=== PATIENT | male | born 1930 | race African-American/Black ===

== ENCOUNTER 2019-04-02 19:41 | Inpatient (IN) | payer MEDICARE, BC ==
[~2019-04-02] VITALS: Ht 170.2 cm; Wt 65.8 kg
[2019-04-02] MEDS ORDERED: CALCIUM 600 +1 EAC3 PO (19:48)
[2019-04-02] MEDS ORDERED: VITAMIN D250000 UNIT PO (19:48)
[2019-04-02] MEDS ORDERED: MEGACE ES625 MG/5 M PO (19:49)
[2019-04-02] MEDS ORDERED: MILK OF MAGNESI30 ML PO (19:49)
[2019-04-02] MEDS ORDERED: ANTIVERT12.5 MG PO (19:49)
[2019-04-02] MEDS ORDERED: TRAZODONE HCL150 MG (19:50)
[2019-04-02] MEDS ORDERED: THERAGRAN M [BK1 TAB PO (19:50)
--- NOTE | 2019-04-02 20:36 | NUR ---
PT TURNED ONTO R SIDE. PT REPORTS INCREASE IN COMFORT. PT RESTING ON BED. PT FAMILY AT BEDSIDE.
[2019-04-02 20:37] VITALS: BP 123/55
--- NOTE | 2019-04-02 21:20 | NUR ---
PT AND FAMILY UPDATED ON PLAN OF CARE. PT RESTING COMFORTABLY. NO S/S OF ACUTE DISTRESS NOTED.
[2019-04-02 21:30] VITALS: BP 118/55
[2019-04-02 22:45] VITALS: BP 118/61; BMI 22.7
--- NOTE | 2019-04-02 22:55 | NUR ---
RECEIVED PT FROM ER, PT IS NONVERBAL AT TIMES, UNDERSTANDS INSTRUCTIONS. PT HAS STAGE 2 ON COCCYX HAD RN REASSESS AND THEN PLACED MEPLEX OVER SORE. PT DAUGHTERS GAVE EMERGENCY CONTACT INFO THEN STATED THAT PT IS TO NOT HAVE BY ANY MEANS A TUBE PLACED. CONTINUE WITH PLAN OF CARE
--- NOTE | 2019-04-02 23:02 | NUR ---
PT IS NOT EATING OR DRINKING PER FAMILY, SWALLOW STUDY NEEDS TO BE DONE, NONE ORDERED AT TIME, WILL ORDER FLUIDS FOR PT AT TIS TIME
[2019-04-03] VITALS (7 sets, daily range): BP systolic 105–139; BP diastolic 55–76; Ht 170.2 cm; Wt 65.8 kg
--- NOTE | 2019-04-03 01:29 | NUR ---
I have reviewed this patient and I concur with the Shift Assessment completed by the Licensed Practical Nurse today this shift.
--- NOTE | 2019-04-03 03:14 | NUR ---
PT RESTING WELL, NO S/S OF DISTRESS. PT DID WAKE UP ONCE AND ASKED FOR URINAL. BED IN LOWEST POSITION, CL IN REACH CONTINUE WITH PLAN OF CARE
[2019-04-03 04:26] LABS: APPEARANCE HAZY (CLEAR); BILIRUBIN 2+ (NEGATIVE); COLOR AMBER (YELLOW); GLUCOSE NEGATIVE (NEGATIVE); KETONE SMALL mg/dL (NEGATIVE); NITRITE NEGATIVE (NEGATIVE); PROTEIN 1+ mg/dL (NEGATIVE)
[2019-04-03 04:29] LABS: AMORPHOUS SEDIMENT >1+ /lpf (NONE SEEN); BACTERIA MANY /hpf (NONE SEEN); EPITHELIAL CELLS 0-5 /hpf (0-5); GRANULAR CAST RARE /lpf (NONE SEEN); HYALINE CAST OCC /lpf (NONE SEEN); MUCUS <1+ /lpf (NONE SEEN); RED CELLS - URINE 0-5 /hpf (0-5); YEAST >1+ /hpf (NONE SEEN)
--- NOTE | 2019-04-03 04:36 | NUR ---
PT URINATED IN URINAL AND COLOR WAS DARK PADMINI WITH PINK TINGE, ORDERED UA AND CULTURE. UA HAS COME BACK WITH MANY ELEMENTS POSITIVE. MARCELINA CRUZ AM NURSE BRING TO CAM GRIER
--- NOTE | 2019-04-03 07:40 | NUR ---
PT RESTING IN BED, EYES OPEN. ALERT AND ORIENTED, SLOW TO RESPOND TO QUESTIONS BUT ANSWERS APPROPRIATELY. USES URINAL. STAGE 4 COLON/PROSTATE CANCER. STAGE 2 PRESSURE ULCER TO COCCYX, MEPILEX DRESSING C/D/I. IV TO LEFT WRIST, NS INFUSING @ 100ML/HR. PT DENIES ANYTHING FURTHER AT THIS TIME. CALL LIGHT IN REACH. WILL CONTINUE TO MONITOR.
--- NOTE | 2019-04-03 13:26 | NUR ---
PT TAKEN FOR EGD VIA BED ACCOMPANIED BY STAFF. AT BEDSIDE. PREOP MEDS GIVEN PER PHYSICIAN ORDERS.
--- NOTE | 2019-04-03 18:41 | NUR ---
PT RESTING IN BED. ALERT AND ORIENTED. NO C/O PAIN. NO S/S OF ACUTE DISTRESS NOTED. CALL LIGHT IN REACH. WILL CONTINUE TO MONITOR.
[2019-04-04] VITALS (8 sets, daily range): BP systolic 106–147; BP diastolic 56–86
[2019-04-04 06:44] LABS: CALCIUM 7.6 mg/dL (8.5-10.1); CARBON DIOXIDE 21.4 mmol/L (21.0-32.0); CREATININE - SERUM 1.9 mg/dL (0.6-1.3); POTASSIUM - SERUM 3.4 mmol/L (3.5-5.1)
[2019-04-04 06:51] LABS: BASOPHILS 0.1 % (0-2); EOSINOPHILS 0 % (0-7); HEMATOCRIT 28.7 % (42.0-54.0); HEMOGLOBIN 9.1 g/dL (13.5-17.5); IMMATURE GRANULOCYTES 0.6 % (0-5); LYMPHOCYTES 5.7 % (15-50); MCH 26.6 pg (26.0-34.0); MCHC 31.7 g/dL (31.0-37.0); MCV 83.9 fL (80.0-100.0); MEAN PLATELET VOLUME 11.8 fL (7.4-10.4); MONOCYTES 4.5 % (2-11); NEUTROPHILS 89.1 % (40-80); PLATELET COUNT 344 10x3/uL (130-400); RBC 3.42 10x6/uL (4.20-6.10); RDW 20.2 % (11.5-14.5); WBC 16.4 10x3/uL (4.8-10.8)
--- NOTE | 2019-04-04 13:40 | MORECARE ---
CASE MANAGEMENT DISCHARGE SUMMARY PATIENT: CK MCCARTHY UNIT: [id number] ADM DATE: 04/02/19 AGE: 88 : [birth year] SEX: M ROOM/BED: D.2227 AUTHOR: MARTINA RIZO PHYSICIAN: REFERRING PHYSICIAN: THIAGO RAGLAND MD DATE OF SERVICE: 04/04/19 Discharge Plan Patient Name: CK MCCARTHY [facility] [facility] 1930 Planned Disposition: SNF w Planned Readmission Anticipated Discharge Date: Discharge Date: Expected LOS: Initial Reviewer: [email or web address] Initial Review Date: 04/04/2019 Generated: 04/04/19 2:40 pm DCPIA - Discharge Planning Initial Assessment Updated by [id number]: Chelsea Girard on 04/04/19 1:39 pm * Is the patient Alert and Oriented? No * How many steps to enter\exit or inside your home? 0/1 * PCP Dr. Webb in [place] * Pharmacy [facility] in [place] * Preadmission Environment Nursing Home Facility * Facility Name [facility] * ADLs Total Dependent * Equipment Cane Walker * List name and contact numbers for known caregivers / representatives who currently or will assist patient after discharge: Grace Mccarthy - spouse - H [phone] * Verbal permission to speak to the caregivers and representatives has been obtained from the patient. Yes * Community resources currently utilized None * Additional services required to return to the preadmission environment? No * Can the patient safely return to the preadmission environment? Yes * Has this patient been hospitalized within the prior 30 days at any hospital? No External Providers External Provider: [facility] Next Contact Date: Service Request Date: Service Type: Resolution: Reviewer: Comments: Patient Name: CK MCCARTHY Page [id number] at 1340 All edits/amendments must be made on the electronic document DICTATION DATE: 04/04/19 1340 GOLF CADDY: ROSALIND 04/04/19 1340 RPT#: [id number] DC DATE: STATUS: ADM IN [facility] [address] [place] [address] END OF REPORT
--- NOTE | 2019-04-04 13:50 | MORECARE ---
CASE MANAGEMENT DISCHARGE SUMMARY PATIENT: CK MCCARTHY UNIT: [id number] ADM DATE: 04/02/19 AGE: 88 : [birth year] SEX: M ROOM/BED: D.2227 AUTHOR: SALLIEDOC PHYSICIAN: REFERRING PHYSICIAN: THIAGO RAGLAND MD DATE OF SERVICE: 04/04/19 Discharge Plan Patient Name: CK MCCARTHY Facility: [facility]:[place] : 1930 Planned Disposition: SNF w Planned Readmission Anticipated Discharge Date: Discharge Date: Expected LOS: Initial Reviewer: [email or web address] Initial Review Date: 04/04/2019 Generated: 04/04/19 2:49 pm Comments DCP- Discharge Planning Updated by [email or web address]: Chelsea Girard on 04/04/19 12:[address] Patient Name: CK MCCARTHY Admission Status: ER Accout number: [id number] Admission Date: 04-02-2019 : 1930 Admission Diagnosis: Attending: THIAGO RAGLAND Current LOS: 2 Anticipated DC Date: Planned Disposition: SNF w Planned Readmission Primary Insurance: MEDICARE A & B Discharge Planning Comments: CM went to patient's room to discuss discharging planning, he is asleep and not awakened. I called his , Grace, to discuss discharge planning. She states he has been in the skilled therapy at [facility] for about a week and a half. She states the discharge plan is to return there. States terminal clerk plan is to return home with her. States he has a cane and a walker at home. I called meghan Araujo for [facility], and clinical faxed. CM will continue to follow and assist with discharge planning/needs. Supervisor Bridges And Buildings: Chelsea Girard DCPIA - Discharge Planning Initial Assessment Updated by [email or web address]: Chelsea Girard on 04/04/19 1:39 pm * Is the patient Alert and Oriented? No * How many steps to enter\exit or inside your home? 0/1 * PCP Dr. Webb in [place] * Pharmacy [facility] in [place] * Preadmission Environment Group Home Facility * Facility Name [facility] * ADLs Total Dependent * Equipment Cane Walker * List name and contact numbers for known caregivers / representatives who currently or will assist patient after discharge: Grace Mccarthy - spouse - H [phone] C [phone] * Verbal permission to speak to the caregivers and representatives has been obtained from the patient. Yes * Community resources currently utilized None * Additional services required to return to the preadmission environment? No * Can the patient safely return to the preadmission environment? Yes * Has this patient been hospitalized within the prior 30 days at any hospital? No Coverage Notice Reviewer: [email or web address] Will Girard Notice Issued Date-Time: 04/04/2019 13:44 Notice Type: Patient Choice Letter Notice Delivered To: Family Member Relationship to Patient: Spouse Thread Dresser Name: Grace Winter Delivery Method: PHONE - Phone Holly Days: Prior Verbal Notification: Recipient Understood Notice: Yes Recipient Signature: Yes Med Rec Note Co-signed by Attending: Coverage Notice Comment: CHRISTA for [facility] Last DP export: 04/04/19 12:40 p Patient Name: CK MCCARTHY Page [id number] at 1350 All edits/amendments must be made on the electronic document DICTATION DATE: 04/04/19 1349 CARPENTER SUPERVISOR WOODEN SHIP: ROSALIND 04/04/19 1349 RPT#: [id number] DC DATE: STATUS: ADM IN [facility] [address] [place] [address] END OF REPORT
--- NOTE | 2019-04-04 19:16 | NUR ---
I have reviewed this patient and I concur with the Shift Assessment completed by the Licensed Practical Nurse today this shift.
[2019-04-05] VITALS (7 sets, daily range): BP systolic 124–157; BP diastolic 50–82
--- NOTE | 2019-04-05 04:18 | NUR ---
RESTING QUITELY IN BED NO APPARENT DISTRESS, CALL LIGHT IN REACH
[2019-04-05 04:43] LABS: BASOPHILS 0.1 % (0-2); EOSINOPHILS 0.1 % (0-7); HEMATOCRIT 33.7 % (42.0-54.0); HEMOGLOBIN 10.8 g/dL (13.5-17.5); IMMATURE GRANULOCYTES 0.7 % (0-5); LYMPHOCYTES 7.4 % (15-50); MCH 27.1 pg (26.0-34.0); MCV 84.7 fL (80.0-100.0); MONOCYTES 3.7 % (2-11); RBC 3.98 10x6/uL (4.20-6.10); RDW 21.3 % (11.5-14.5); WBC 15.4 10x3/uL (4.8-10.8)
[2019-04-05 04:44] LABS: PLATELET COUNT 264 10x3/uL (130-400)
[2019-04-05 04:47] LABS: ANION GAP 17.3 mmol/L (8-16); CALCIUM 7.8 mg/dL (8.5-10.1); CARBON DIOXIDE 19.7 mmol/L (21.0-32.0)
[2019-04-05 04:50] LABS: CREATININE - SERUM 1.4 mg/dL (0.6-1.3)
--- NOTE | 2019-04-05 12:27 | NUR ---
Nutrition Follow Up: Pt was asleep at the time of RD visit. Interview deferred at this time. Diet: Regular Puree with Colt Thick Liquids; Ensure TID PO Intake: 25% meal avg BM: 04/03/19 Labs reviewed Meds noted including Carafate, Reglan Rec continue regular diet with HALL SUPERVISOR recs for consistencies. Rec continue Ensure TID. Rec consider an appetite stimulant. RD following.
--- NOTE | 2019-04-05 14:48 | NUR ---
PT RESTING IN BED. NO SIGNS OF DISTRESS. IV TO LEFT WRIST PATENT NO REDNESS OR TENDERNESS. HAS STAGE TWO TO COCCYX DRESSING INTACT. DENIES ANY FUTHER NEED AT THIS TIME. CALL LIGHT IN REACH. BED LOW POSITION. NO FAMILY AT BEDSIDE AT THIS TIME.
--- NOTE | 2019-04-05 18:04 | NUR ---
I have reviewed this patient and I concur with the Shift Assessment completed by the Licensed Practical Nurse today this shift.
--- NOTE | 2019-04-05 19:00 | NUR ---
REPORT RECEIVED AND CARE OF PT ASSUMED. PT LYING ON RIGHT SIDE PROPPED WITH WEDGE. IV IN LEFT WRIST PATENT WITH NS INFUSING AT 100 ML/ HR. WILL MONITOR FOR NEEDS.
--- NOTE | 2019-04-05 21:56 | NUR ---
HS MEDICATIONS GIVEN. GAVE PILLS WHOLE WITH APPLESAUCE. WILL CONTINUE TO MONITOR FOR NEEDS.
--- NOTE | 2019-04-05 22:30 | NUR ---
BRUSHED AND CLEANED DENTURES, AND PLACED WITH TABLET AND WATER TO SOAK.
--- NOTE | 2019-04-05 23:20 | NUR ---
PT CLEANED AND ALL LINENS CHANGED DUE TO INCONTINENCE OF BOWEL AND BLADDER. POSITIONED ON BACK PER TURN SCHEDULE. HEELS BRIDGED. WILL CONTINUE TO MONITOR FOR NEEDS.
--- NOTE | 2019-04-06 01:30 | NUR ---
CHANGED ALL IV TUBING.
[2019-04-06 04:58] VITALS: BP 151/70
[2019-04-06 05:11] LABS: HEMATOCRIT 31.3 % (42.0-54.0); MCH 26.5 pg (26.0-34.0); MCHC 31.9 g/dL (31.0-37.0); MCV 82.8 fL (80.0-100.0); MEAN PLATELET VOLUME 11.4 fL (7.4-10.4); PLATELET COUNT 275 10x3/uL (130-400); RBC 3.78 10x6/uL (4.20-6.10); RDW 21.1 % (11.5-14.5); WBC 22.1 10x3/uL (4.8-10.8)
[2019-04-06 05:17] LABS: ANION GAP 14.9 mmol/L (8-16); CALCIUM 7.6 mg/dL (8.5-10.1); CARBON DIOXIDE 21.7 mmol/L (21.0-32.0); CREATININE - SERUM 1.5 mg/dL (0.6-1.3); POTASSIUM - SERUM 3.6 mmol/L (3.5-5.1)
[2019-04-06 05:37] LABS: LYMPHOCYTES 5 % (15-50); MONOCYTES 4 % (2-11); NEUTROPHILS 91 % (40-80); PLATELET ESTIMATE NORMAL
--- NOTE | 2019-04-06 05:39 | NUR ---
PAGED ONCALL PHYSICIAN WITH CRITICALLY HIGH CHLORIDE LEVEL. RECEIVED ORDER TO DISCONTINUE NS AT 100 ML/HR AND START D5W @ 75 ML/HR.
--- NOTE | 2019-04-06 06:03 | NUR ---
PT BATHED AND ALL LINENS AND GOWN CHANGED. NEW SOCKS PUT ON BLE...CUT THE TOP DUE TO SWOLLEN FEET. SCD'S RE-PLACED BLE. RE-PLACED DRESSING ON COCCYX...PT HAS CAYDEN SIZE SKIN BREAKDOWN. APPLIED MEPILEX FOAM DRESSING. PT TURNED ONTO LEFT SIDE PER TURN SCHEDULE, PROPPED WITH WEDGE. WILL CONTINUE TO MONITOR FOR NEEDS.
[2019-04-06 08:45] VITALS: BP 147/69
--- NOTE | 2019-04-06 12:36 | NUR ---
PT RESTING IN BED. NO SIGNS OF DISTRESS. IV TO RIGHT WRIST PATENT NO REDNESS OR TENDERNESS. HAS STAGE TWO TO COCCYX. DRESSING CLEAN AND INTACT. DENIES ANY FUTHER NEED AT THIS TIME. CALL LIGHT IN REACH. BED LOW POSITION. FAMILY AT BEDSIDE AT THIS TIME.
[2019-04-06 14:37] VITALS: BP 149/68
[2019-04-06 18:03] VITALS: BP 137/60
--- NOTE | 2019-04-06 19:00 | NUR ---
REPORT RECEIVED AND CARE OF PT ASSUMED. PT LYING IN SEMI SCHMITZ'S POSITION VISITING WITH SPOUSE AND OTHER FAMILY MEMBERS. IV IN LEFT WRIST PATENT WITH D5W INFUSING AT 75 ML / HR. SCD'S IN PLACE ON BLE.
--- NOTE | 2019-04-06 19:05 | NUR ---
ALL LINENS AND GOWN CHANGED DUE TO INCONTINENCE. POSITIONED ONTO RIGHT SIDE PER TURN SCHEDULE.
--- NOTE | 2019-04-06 20:30 | NUR ---
PT TURNED TO SUPINE POSITION PER TURN SCHEDULE. HEELS BRIDGED AND SCD'S IN PLACE.
[2019-04-06 21:22] VITALS: BP 127/59
--- NOTE | 2019-04-06 22:01 | NUR ---
HS MEDICATIONS GIVEN. BEDPADS CHANGED DUE TO INCONTINENCE AND PT TURNED TO LEFT SIDE PER TURN SCHEDULE.
--- NOTE | 2019-04-06 22:05 | NUR ---
CHANGED DRESSING ON COCCYX. CLEANSED AREA WITH WOUND PRINT PRODUCER; DRIED CAREFULLY; APPLIED SMALL AMOUNT OF ERIN'S PASTE, AND COVERED AREA WITH MEPILEX HEART. DATED AND INITIALED. WILL CONTINUE TO MONITOR FOR NEEDS.
[2019-04-07 01:22] VITALS: BP 134/62
--- NOTE | 2019-04-07 02:20 | NUR ---
BEDPADS CHANGED DUE TO INCONTINENCE OF BOWEL AND BLADDER. POSITIONED ONTO RIGHT SIDE PROPPED WITH PILLOW PER TURN SCHEDULE.
[2019-04-07 04:42] LABS: BASOPHILS 0 % (0-2); EOSINOPHILS 0.1 % (0-7); HEMATOCRIT 29.6 % (42.0-54.0); HEMOGLOBIN 9.5 g/dL (13.5-17.5); IMMATURE GRANULOCYTES 0.6 % (0-5); LYMPHOCYTES 6.2 % (15-50); MCH 26.8 pg (26.0-34.0); MCHC 32.1 g/dL (31.0-37.0); MCV 83.6 fL (80.0-100.0); MEAN PLATELET VOLUME 10.9 fL (7.4-10.4); MONOCYTES 2.9 % (2-11); NEUTROPHILS 90.2 % (40-80); PLATELET COUNT 235 10x3/uL (130-400); RBC 3.54 10x6/uL (4.20-6.10); RDW 21.1 % (11.5-14.5)
[2019-04-07 04:44] LABS: WBC 15.6 10x3/uL (4.8-10.8)
[2019-04-07 04:55] LABS: ALBUMIN 1.4 g/dL (3.4-5.0); ANION GAP 15.1 mmol/L (8-16); BILIRUBIN - TOTAL 2.09 mg/dL (0.2-1.3); CALCIUM 7.3 mg/dL (8.5-10.1); CARBON DIOXIDE 19.9 mmol/L (21.0-32.0); CREATININE - SERUM 1.4 mg/dL (0.6-1.3); PROTEIN - SERUM 5.5 g/dL (6.4-8.2)
--- NOTE | 2019-04-07 05:05 | NUR ---
PT ABLE TO USE URINAL WITH MINIMAL ASSISTANCE. WILL CONTINUE TO MONITOR FOR NEEDS.
[2019-04-07 05:14] VITALS: BP 133/55
--- NOTE | 2019-04-07 06:35 | NUR ---
ASSISTED PT IN PUTTING IN HIS DENTURES. EARLY AM MEDS GIVEN WITH THICKENED WATER.
--- NOTE | 2019-04-07 06:39 | NUR ---
FAMILY MEMBERS ARE REQUESTING PT HAVE AN AIR MATTRESS OVERLAY DUE TO COCCYX BREAKDOWN AND SILVADINE OINTMENT FOR AREA. CONSULT PLACED FOR WOUND CARE CONSULT.
[2019-04-07 08:47] VITALS: BP 141/66
[2019-04-07 12:41] VITALS: BP 122/48
[2019-04-07 18:07] VITALS: BP 155/70
--- NOTE | 2019-04-07 18:55 | NUR ---
I have reviewed this patient and I concur with the Shift Assessment completed by the Licensed Practical Nurse today this shift.
--- NOTE | 2019-04-07 19:00 | NUR ---
REPORT RECEIVED AND CARE OF PT ASSUMED. PT LYING ON 1ST STEP AIR MATTRESS OVERLAY VISITING WITH FAMILY MEMBERS. IV IN LEFT WRIST PATENT WITH D5W INFUSING AT 75 ML / HR. WILL MONITOR FOR NEEDS.
[2019-04-07 20:00] VITALS: BP 138/69
--- NOTE | 2019-04-07 22:29 | NUR ---
HS MEDICATIONS GIVEN. WILL CONTINUE TO MONITOR FOR NEEDS.
[2019-04-08] VITALS: BP 129/69
--- NOTE | 2019-04-08 00:30 | NUR ---
BEDPADS CHANGED AND PT CLEANED DUE TO INCONTINENCE. CLEANSED DECUBITIS ULCER ON COCCYX WITH WOUND ROAD MENDER AND REPLACED MEPILEX HEART DRESSING.
[2019-04-08 04:00] VITALS: BP 151/62
--- NOTE | 2019-04-08 05:01 | NUR ---
PT BATHED AND ALL LINENS CHANGED. HE WANTED TO WEAR HIS OWN NOE SHIRT INSTEAD OF YELLOW GOWN THIS MORNING. SCD'S AND SOCKS REMOVED AND FEET / LEGS CLEANSED. PLACED NEW SOCKS ON BLE. SCD'S PLACED ON LOWER LEGS AND TURNED ON. HEELS BRIDGED ON PILLOW. PT IN SUPINE POSITION AT THIS TIME PER TURN SCHEDULE.
[2019-04-08 05:13] LABS: BASOPHILS 0 % (0-2); EOSINOPHILS 0 % (0-7); HEMATOCRIT 30.8 % (42.0-54.0); HEMOGLOBIN 9.9 g/dL (13.5-17.5); IMMATURE GRANULOCYTES 0.5 % (0-5); LYMPHOCYTES 5.3 % (15-50); MCH 26.7 pg (26.0-34.0); MCHC 32.1 g/dL (31.0-37.0); MEAN PLATELET VOLUME 11.3 fL (7.4-10.4); MONOCYTES 2.8 % (2-11); NEUTROPHILS 91.4 % (40-80); PLATELET COUNT 197 10x3/uL (130-400); RBC 3.71 10x6/uL (4.20-6.10); RDW 21.6 % (11.5-14.5); WBC 16.4 10x3/uL (4.8-10.8)
[2019-04-08 05:41] LABS: ALBUMIN 1.4 g/dL (3.4-5.0); ANION GAP 16.6 mmol/L (8-16); BILIRUBIN - TOTAL 2.74 mg/dL (0.2-1.3); CALCIUM 7.5 mg/dL (8.5-10.1); CARBON DIOXIDE 18.9 mmol/L (21.0-32.0); CREATININE - SERUM 1.2 mg/dL (0.6-1.3); POTASSIUM - SERUM 3.5 mmol/L (3.5-5.1); PROTEIN - SERUM 5.6 g/dL (6.4-8.2)
[2019-04-08 08:49] VITALS: BP 138/63
[2019-04-08 12:39] VITALS: BP 123/61
[2019-04-08 17:55] VITALS: BP 121/52
--- NOTE | 2019-04-08 19:00 | NUR ---
REPORT RECEIVED AND CARE OF PT ASSUMED. PT LYING IN SUPINE POSITION ON 1ST STEP AIR MATTRESS OVERLAY. FAMILY MEMBERS ARE AT BEDSIDE. IV IN LEFT WRIST PATENT WITH D5W INFUSING AT 75 ML / HR. SCD'S IN PLACE ON BLE. WILL MONITOR FOR NEEDS.
[2019-04-08 20:00] VITALS: BP 132/66
--- NOTE | 2019-04-08 21:15 | NUR ---
PT TURNED TO SUPINE POSITION PER TURN SCHEDULE.
--- NOTE | 2019-04-08 23:30 | NUR ---
BED PAD CHANGED DUE TO INCONTINENCE. CLEANSED WOUND ON COCCYX WITH WOUND ACCOUNTING OFFICE MANAGER AND RE-PLACED MEPILEX HEART DRESSING. PT TURNED TO LEFT SIDE PER TURN SCHEDULE.
[2019-04-09] VITALS: BP 122/61
[2019-04-09 04:00] VITALS: BP 127/66
[2019-04-09 04:22] LABS: BASOPHILS 0.1 % (0-2); EOSINOPHILS 0 % (0-7); HEMATOCRIT 32.7 % (42.0-54.0); HEMOGLOBIN 10.8 g/dL (13.5-17.5); IMMATURE GRANULOCYTES 0.4 % (0-5); LYMPHOCYTES 6.8 % (15-50); MCH 26.9 pg (26.0-34.0); MCV 81.3 fL (80.0-100.0); MEAN PLATELET VOLUME 11.4 fL (7.4-10.4); MONOCYTES 2.7 % (2-11); PLATELET COUNT 196 10x3/uL (130-400); RBC 4.02 10x6/uL (4.20-6.10); RDW 21.5 % (11.5-14.5); WBC 19.9 10x3/uL (4.8-10.8)
[2019-04-09 04:23] LABS: ANION GAP 16.9 mmol/L (8-16); CALCIUM 7.6 mg/dL (8.5-10.1); CREATININE - SERUM 1.2 mg/dL (0.6-1.3); POTASSIUM - SERUM 3.9 mmol/L (3.5-5.1)
--- NOTE | 2019-04-09 05:59 | NUR ---
IV LEAKING. UNABLE TO SITE PERIPHERAL IN SEVERAL ATTEMPTS. ACCESSED INFUSAPORT USING 20 GUAGE 0.75 IN TRAORE NEEDLE, USING STERILE TECHNIQUE. ALL IV TUBINGS CHANGED. FLUSHES AND DRAWS WELL. IV FLUIDS RE-STARTED.
[2019-04-09 08:55] VITALS: BP 128/63
--- NOTE | 2019-04-09 12:07 | MORECARE ---
CASE MANAGEMENT DISCHARGE SUMMARY PATIENT: CK MCCARTHY UNIT: [id number] ADM DATE: 04/02/19 AGE: 88 : [birth year] SEX: M ROOM/BED: D.2227 AUTHOR: SALLIE,DOC PHYSICIAN: REFERRING PHYSICIAN: ELISA LU MD DATE OF SERVICE: 04/09/19 Discharge Plan Patient Name: CK MCCARTHY Facility: [facility]:[place] : 1930 Planned Disposition: SNF w Planned Readmission Anticipated Discharge Date: Discharge Date: Expected LOS: Initial Reviewer: [id number] Initial Review Date: 04/04/2019 Generated: 04/09/19 1:07 pm Comments DCP- Discharge Planning Updated by [id number]: Chelsea Girard on 04/04/19 12:[address] Patient Name: CK MCCARTHY Admission Status: ER Accout number: [id number] Admission Date: 04-02-2019 : 1930 Admission Diagnosis: Attending: THIAGO RAGLAND Current LOS: 2 Anticipated DC Date: Planned Disposition: SNF w Planned Readmission Primary Insurance: MEDICARE A & B Discharge Planning Comments: CM went to patient's room to discuss discharging planning, he is asleep and not awakened. I called his , Grace, to discuss discharge planning. She states he has been in the skilled therapy at [facility] for about a week and a half. She states the discharge plan is to return there. States rn long term care plan is to return home with her. States he has a cane and a walker at home. I called meghan Araujo for [facility], and clinical faxed. CM will continue to follow and assist with discharge planning/needs. Entomology Professor: Chelsea Girard DCPIA - Discharge Planning Initial Assessment Updated by [id number]: Chelsea Girard on 04/04/19 1:39 pm * Is the patient Alert and Oriented? No * How many steps to enter\exit or inside your home? 0/1 * PCP Dr. Webb in [place] * Pharmacy [facility] in [place] * Preadmission Environment Retirement Facility * Facility Name [facility] * ADLs Total Dependent * Equipment Cane Walker * List name and contact numbers for known caregivers / representatives who currently or will assist patient after discharge: Grace Mccarthy - spouse - H [phone] C [phone] * Verbal permission to speak to the caregivers and representatives has been obtained from the patient. Yes * Community resources currently utilized None * Additional services required to return to the preadmission environment? No * Can the patient safely return to the preadmission environment? Yes * Has this patient been hospitalized within the prior 30 days at any hospital? No External Providers External Provider: [facility] Next Contact Date: Service Request Date: Service Type: Resolution: Reviewer: Comments: Coverage Notice Reviewer: [id number] Will Girard Notice Issued Date-Time: 04/04/2019 13:44 Notice Type: Patient Choice Letter Notice Delivered To: Family Member Relationship to Patient: Spouse Chief Medical Director Name: Grace Winter Delivery Method: PHONE - Phone Holly Days: Prior Verbal Notification: Recipient Understood Notice: Yes Recipient Signature: Yes Med Rec Note Co-signed by Attending: Coverage Notice Comment: CHRISTA for Teresa De Leon Last DP export: 04/04/19 12:50 p Patient Name: CK MCCARTHY Page [phone] at 1207 All edits/amendments must be made on the electronic document DICTATION DATE: 04/09/196 BLUNGER MACHINE OPERATOR: ROSALIND 04/09/19 1206 RPT#: [id number] DC DATE: STATUS: ADM IN [facility] [address] [place] [address] END OF REPORT
--- NOTE | 2019-04-09 12:16 | MORECARE ---
CASE MANAGEMENT DISCHARGE SUMMARY PATIENT: CK MCCARTHY UNIT: [id number] ADM DATE: 04/02/19 AGE: 88 : [birth year] SEX: M ROOM/BED: D.2227 AUTHOR: SALLIEDOC PHYSICIAN: REFERRING PHYSICIAN: ELISA LU MD DATE OF SERVICE: 04/09/19 Discharge Plan Patient Name: CK MCCARTHY Facility: [facility]:[place] : 1930 Planned Disposition: SNF w Planned Readmission Anticipated Discharge Date: Discharge Date: Expected LOS: Initial Reviewer: [email or web address] Initial Review Date: 04/04/2019 Generated: 04/09/19 1:16 pm Comments DCP- Discharge Planning Updated by [email or web address]: Jaleesa Daniels on 04/09/19 11:[address] Patient Name: CK MCCARTHY Admission Status: ER Accout number: [id number] Admission Date: 04-02-2019 : 1930 Admission Diagnosis:DYSPHAGIA, UNSPECIFIED Attending: ELISA LU Current LOS: 7 Anticipated DC Date: Planned Disposition: SNF w Planned Readmission Primary Insurance: MEDICARE A & B Discharge Planning Comments: CM SPOKE WITH PATIENT FAMILY BY PHONE AND THEY ARE INTERESTED IN HOSPICE. FAMILY STATES WANTS [facility] IN [place]. I CONTACTED CURT[facility] AT HOSPICE AT [phone] AND FAXED HER DOCUMENTS TO [phone]. WAITING FOR CALL BACK. CM WILL FOLLOW AND ASSIST NEEDED. Film Flat Inspector: Jaleesa Daniels DCP- Discharge Planning Updated by [id number]: Chelsea Girard on 04/04/19 12:[address] Patient Name: CK MCCARTHY Admission Status: ER Accout number: [id number] Admission Date: 04-02-2019 : 1930 Admission Diagnosis: Attending: THIAGO RAGLAND Current LOS: 2 Anticipated DC Date: Planned Disposition: SNF w Planned Readmission Primary Insurance: MEDICARE A & B Discharge Planning Comments: CM went to patient's room to discuss discharging planning, he is asleep and not awakened. I called his , Grace, to discuss discharge planning. She states he has been in the skilled therapy at [facility] for about a week and a half. She states the discharge plan is to return there. States penitentiary plan is to return home with her. States he has a cane and a walker at home. I called meghan Araujo for [facility], and clinical faxed. CM will continue to follow and assist with discharge planning/needs. Film Flat Inspector: Chelseascot Girard DCPIA - Discharge Planning Initial Assessment Updated by [id number]: Chelsea Girard on 04/04/19 1:39 pm * Is the patient Alert and Oriented? No * How many steps to enter\exit or inside your home? 0/1 * PCP Dr. Webb in [place] * Pharmacy [facility] in [place] * Preadmission Environment [facility] Facility * Facility Name [facility] * ADLs Total Dependent * Equipment Cane Walker * List name and contact numbers for known caregivers / representatives who currently or will assist patient after discharge: Grace Mccarthy - spouse - H [phone] C [phone] * Verbal permission to speak to the caregivers and representatives has been obtained from the patient. Yes * Community resources currently utilized None * Additional services required to return to the preadmission environment? No * Can the patient safely return to the preadmission environment? Yes * Has this patient been hospitalized within the prior 30 days at any hospital? No Coverage Notice Reviewer: [id number] - Chelsea Girard Notice Issued Date-Time: 04/04/2019 13:44 Notice Type: Patient Choice Letter Notice Delivered To: Family Member Relationship to Patient: Spouse Health/Safety Job Titles Name: Grace Winter Delivery Method: PHONE - Phone Holly Days: Prior Verbal Notification: Recipient Understood Notice: Yes Recipient Signature: Yes Med Rec Note Co-signed by Attending: Coverage Notice Comment: CHRISTA for [facility] [employer] Last DP export: 04/09/19 11:07 a Patient Name: CK MCCARTHY Page [phone] at 1216 All edits/amendments must be made on the electronic document DICTATION DATE: 04/09/19 1216 PATIENT CARE COORDINATOR: ROSALIND 04/09/19 1216 RPT#: [id number] [place] DATE: STATUS: ADM IN [facility] [address] [place] [address] END OF REPORT
[2019-04-09 12:34] VITALS: BP 124/62
--- NOTE | 2019-04-09 14:18 | MORECARE ---
CASE MANAGEMENT DISCHARGE SUMMARY PATIENT: CK MCCARTHY UNIT: [id number] ADM DATE: 04/02/19 AGE: 88 : [birth year] SEX: M ROOM/BED: D.2227 AUTHOR: SALLIE,DOC PHYSICIAN: REFERRING PHYSICIAN: ELISA LU MD DATE OF SERVICE: 04/09/19 Discharge Plan Patient Name: CK MCCARTHY Facility: [facility]:[place] : 1930 Planned Disposition: SNF w Planned Readmission Anticipated Discharge Date: Discharge Date: Expected LOS: Initial Reviewer: [id number] Initial Review Date: 04/04/2019 Generated: 04/09/19 3:18 pm Comments DCP- Discharge Planning Updated by [id number]: Jaleesa Daniels on 04/09/19 1:[address] Patient Name: CK MCCARTHY Admission Status: ER Accout number: [id number] Admission Date: 04-02-2019 : 1930 Admission Diagnosis:DYSPHAGIA, UNSPECIFIED Attending: ELISA LU Current LOS: 7 Anticipated DC Date: Planned Disposition: SNF w Planned Readmission Primary Insurance: MEDICARE A & B Discharge Planning Comments: CM SPOKE WITH CURTIS AT [facility] IN [place] AN D THEY CAN ADMIT PATIENT TOMORROW AFTER DC TO HOME. [facility] NUMBER IS [phone]. SHAYAN AT DR. LU OFFICE CONTACTED AND LEFT [facility] [place] REGARDING IF ANTIBIOTICS ARE TO BE CONTINUED OR NOT AND PATIENT ACCEPTED WITH HOSPICE. CM TO FOLLOW AND ASSIST. Price Clerk: Jaleesa Daniels DCP- Discharge Planning Updated by [email or web address]: Jaleesa Daniels on 04/09/19 11:[address] Patient Name: CK MCCARTHY Admission Status: ER Accout number: [id number] Admission Date: 04-02-2019 : 1930 Admission Diagnosis:DYSPHAGIA, UNSPECIFIED Attending: ELISA LU Current LOS: 7 Anticipated DC Date: Planned Disposition: SNF w Planned Readmission Primary Insurance: MEDICARE A & B Discharge Planning Comments: CM SPOKE WITH PATIENT FAMILY BY PHONE AND THEY ARE INTERESTED IN HOSPICE. FAMILY STATES WANTS [facility] IN [place]. I CONTACTED CURTIS AT HOSPICE AT [phone] AND FAXED HER DOCUMENTS TO [phone]. WAITING FOR CALL BACK. CM WILL FOLLOW AND ASSIST NEEDED. Price Clerk: Jaleesa Daniels DCP- Discharge Planning Updated by [id number]: Chelsea Girard on 04/04/19 12:[address] Patient Name: CK MCCARTHY Admission Status: ER Accout number: [id number] Admission Date: 04-02-2019 : 1930 Admission Diagnosis: Attending: THIAGO RAGLAND Current LOS: 2 Anticipated DC Date: Planned Disposition: SNF w Planned Readmission Primary Insurance: MEDICARE A & B Discharge Planning Comments: CM went to patient's room to discuss discharging planning, he is asleep and not awakened. I called his , Grace, to discuss discharge planning. She states he has been in the skilled therapy at [facility] for about a week and a half. She states the discharge plan is to return there. States senior care plan is to return home with her. States he has a cane and a walker at home. I called meghan Araujo for [facility], and clinical faxed. CM will continue to follow and assist with discharge planning/needs. Price Clerk: Chelsea Girard DCPIA - Discharge Planning Initial Assessment Updated by [id number]: Chelsea Girard on 04/04/19 1:39 pm * Is the patient Alert and Oriented? No * How many steps to enter\exit or inside your home? 0/1 * PCP Dr. Webb in [place] * Pharmacy [facility] in [place] * Preadmission Environment Shelter Facility * Facility Name [facility] * ADLs Total Dependent * Equipment Cane Walker * List name and contact numbers for known caregivers / representatives who currently or will assist patient after discharge: Grace Mccarthy - spouse - H [phone] C [phone] * Verbal permission to speak to the caregivers and representatives has been obtained from the patient. Yes * Community resources currently utilized None * Additional services required to return to the preadmission environment? No * Can the patient safely return to the preadmission environment? Yes * Has this patient been hospitalized within the prior 30 days at any hospital? No Coverage Notice Reviewer: [id number] - Cheslea Orrell Notice Issued Date-Time: 04/04/2019 13:44 Notice Type: Patient Choice Letter Notice Delivered To: Family Member Relationship to Patient: Spouse Barge Captain Name: Grace Winter Delivery Method: PHONE - Phone Holly Days: Prior Verbal Notification: Recipient Understood Notice: Yes Recipient Signature: Yes Med Rec Note Co-signed by Attending: Coverage Notice Comment: CHRISTA for [facility] Last DP export: 04/09/19 11:16 a Patient Name: CK MCCARTHY Page 35179 at 1418 All edits/amendments must be made on the electronic document DICTATION DATE: 04/09/19 1418 OIL DISTRIBUTOR TENDER: ROSALIND 04/09/19 1418 RPT#: [id number] DC DATE: STATUS: ADM IN [facility] [address] [place] [address] END OF REPORT
--- NOTE | 2019-04-09 15:37 | MORECARE ---
CASE MANAGEMENT DISCHARGE SUMMARY PATIENT: CK MCCARTHY UNIT: [id number] ADM DATE: 04/02/19 AGE: 88 : [birth year] SEX: M ROOM/BED: D.2227 AUTHOR: SALLIE,DOC PHYSICIAN: REFERRING PHYSICIAN: ELISA LU MD DATE OF SERVICE: 04/09/19 Discharge Plan Patient Name: CK MCCARTHY Facility: [facility]:[place] : 1930 Planned Disposition: SNF w Planned Readmission Anticipated Discharge Date: Discharge Date: Expected LOS: Initial Reviewer: [id number] Initial Review Date: 04/04/2019 Generated: 04/09/19 4:36 pm Comments DCP- Discharge Planning Updated by [id number]: Jaleesa Daniels on 04/09/19 2:[address] Patient Name: CK MCCARTHY Admission Status: ER Accout number: [id number] Admission Date: 04-02-2019 : 1930 Admission Diagnosis:DYSPHAGIA, UNSPECIFIED Attending: ELISA LU Current LOS: 7 Anticipated DC Date: Planned Disposition: SNF w Planned Readmission Primary Insurance: MEDICARE A & B Discharge Planning Comments: CM SPOKE WITH CURTIS AT [facility] IN [facility] D THEY CAN ADMIT PATIENT TOMORROW AFTER DC TO HOME. [facility] NUMBER IS [phone]. SHAYAN AT DR. LU OFFICE CONTACTED AND LEFT [facility] FOR MD REGARDING IF ANTIBIOTICS ARE TO BE CONTINUED OR NOT AND PATIENT ACCEPTED WITH HOSPICE. CM TO FOLLOW AND ASSIST. Face Cleaner: Jaleesa Daniels Appended by Jaleesa Daniels on 04/09/2019 15:36 CDT: [facility] CALLED AND THEY ARE DELIVERING PATIENT DME TO THE HOME ABOUT 1030 AM TOMORROW (). PLEASE LET HOSPICE KNOW WHEN PATIENT IS DC'D FROM HERE AND HEADED HOME. THX DCP- Discharge Planning Updated by [id number]: Jaleesa Daniels on 04/09/19 11:[address] Patient Name: CK MCCARTHY Admission Status: ER Accout number: [id number] Admission Date: 04-02-2019 : 1930 Admission Diagnosis:DYSPHAGIA, UNSPECIFIED Attending: ELISA LU Current LOS: 7 Anticipated DC Date: Planned Disposition: SNF w Planned Readmission Primary Insurance: MEDICARE A & B Discharge Planning Comments: CM SPOKE WITH PATIENT FAMILY BY PHONE AND THEY ARE INTERESTED IN HOSPICE. FAMILY STATES WANTS [facility] IN [place]. I CONTACTED CURTIS AT HOSPICE AT [phone] AND FAXED HER DOCUMENTS TO [phone]. WAITING FOR CALL BACK. CM WILL FOLLOW AND ASSIST NEEDED. Face Cleaner: Jaleesa Daniels DCP- Discharge Planning Updated by [email or web address]: Chelsea Girard on 04/04/19 12:[address] Patient Name: CK MCCARTHY Admission Status: ER Accout number: [id number] Admission Date: 04-02-2019 : 1930 Admission Diagnosis: Attending: THIAGO RAGLAND Current LOS: 2 Anticipated DC Date: Planned Disposition: SNF w Planned Readmission Primary Insurance: MEDICARE A & B Discharge Planning Comments: CM went to patient's room to discuss discharging planning, he is asleep and not awakened. I called his , Grace, to discuss discharge planning. She states he has been in the skilled therapy at [facility] for about a week and a half. She states the discharge plan is to return there. States correction plan is to return home with her. States he has a cane and a walker at home. I called meghan Araujo for [facility], and clinical faxed. CM will continue to follow and assist with discharge planning/needs. Face Cleaner: Chelsea Girard DCPIA - Discharge Planning Initial Assessment Updated by [id number]: Chelsea Girard on 04/04/19 1:39 pm * Is the patient Alert and Oriented? No * How many steps to enter\exit or inside your home? 0/1 * PCP Dr. Webb in [place] * Pharmacy [facility] in [place] * Preadmission Environment [facility] Facility * Facility Name [facility] * ADLs Total Dependent * Equipment Cane Walker * List name and contact numbers for known caregivers / representatives who currently or will assist patient after discharge: Grace Mccarthy - spouse - H [phone] C [phone] * Verbal permission to speak to the caregivers and representatives has been obtained from the patient. Yes * Community resources currently utilized None * Additional services required to return to the preadmission environment? No * Can the patient safely return to the preadmission environment? Yes * Has this patient been hospitalized within the prior 30 days at any hospital? No Coverage Notice Reviewer: [id number] Will Girard Notice Issued Date-Time: 04/04/2019 13:44 Notice Type: Patient Choice Letter Notice Delivered To: Family Member Relationship to Patient: Spouse Wedding Consultant Name: Grace Winter Delivery Method: PHONE - Phone Holly Days: Prior Verbal Notification: Recipient Understood Notice: Yes Recipient Signature: Yes Med Rec Note Co-signed by Attending: Coverage Notice Comment: CHRISTA for [facility] Last DP export: 04/09/19 1:18 p Patient Name: CK MCCARTHY Page 79266 at 1537 All edits/amendments must be made on the electronic document DICTATION DATE: 04/09/196 GRAIN SHIPPER: ROSALIND 04/09/19 1536 RPT#: [id number] DC DATE: STATUS: ADM IN [facility] [address] [place] [address] END OF REPORT
--- NOTE | 2019-04-09 16:53 | MORECARE ---
CASE MANAGEMENT DISCHARGE SUMMARY PATIENT: CK MCCARTHY UNIT: [id number] ADM DATE: 04/02/19 AGE: 88 : [birth year] SEX: M ROOM/BED: D.2227 AUTHOR: SALLIEDOC PHYSICIAN: REFERRING PHYSICIAN: ELISA LU MD DATE OF SERVICE: 04/09/19 Discharge Plan Patient Name: CK MCCARTHY Facility: [facility]:[place] : 1930 Planned Disposition: SNF w Planned Readmission Anticipated Discharge Date: Discharge Date: Expected LOS: Initial Reviewer: [id number] Initial Review Date: 04/04/2019 Generated: 04/09/19 5:53 pm Comments DCP- Discharge Planning Updated by [id number]: Jaleesa Daniels on 04/09/19 3:[address] Patient Name: CK MCCARTHY Admission Status: ER Accout number: [id number] Admission Date: 04-02-2019 : 1930 Admission Diagnosis:DYSPHAGIA, UNSPECIFIED Attending: ELISA LU Current LOS: 7 Anticipated DC Date: Planned Disposition: SNF w Planned Readmission Primary Insurance: MEDICARE A & B Discharge Planning Comments: CM SPOKE WITH CURTIS AT [facility] IN [facility] D THEY CAN ADMIT PATIENT TOMORROW AFTER DC TO HOME. [facility] NUMBER IS [phone]. SHAYAN AT DR. UL OFFICE CONTACTED AND LEFT [facility] FOR MD REGARDING IF ANTIBIOTICS ARE TO BE CONTINUED OR NOT AND PATIENT ACCEPTED WITH HOSPICE. CM TO FOLLOW AND ASSIST. Gas Mask Inspector: Jaleesa Daniels Appended by Jaleesa Daniels on 04/09/2019 15:36 CDT: [facility] CALLED AND THEY ARE DELIVERING PATIENT DME TO THE HOME ABOUT 1030 AM TOMORROW (). PLEASE LET HOSPICE KNOW WHEN PATIENT IS DC'D FROM HERE AND HEADED HOME. THX Appended by Jaleesa Daniels on 04/09/2019 16:52 CDT: PATIENT'S PAT IS HERE AND REQUESTS TO SPEAK TO MD ABOUT PATIENT'S PROGNOSIS. SHE MAY NOT WANT HOME HOSPICE, SHAYAN AT DR LU OFFICE NOTIFIED. JITENDRA ANDREWS NOTIFIED IS UNSURE NOW IF HOSPICE IS BEST CHOICE. CM WILL CALL [facility] AND NOTIFY OF POSSIBLE CHANGE. DCP- Discharge Planning Updated by [id number]: Jaleesa Daniels on 04/09/19 11:[address] Patient Name: CK MCCARTHY Admission Status: ER Accout number: [id number] Admission Date: 04-02-2019 : 1930 Admission Diagnosis:DYSPHAGIA, UNSPECIFIED Attending: ELISA LU Current LOS: 7 Anticipated DC Date: Planned Disposition: SNF w Planned Readmission Primary Insurance: MEDICARE A & B Discharge Planning Comments: CM SPOKE WITH PATIENT FAMILY BY PHONE AND THEY ARE INTERESTED IN HOSPICE. FAMILY STATES WANTS [facility] IN [place]. I CONTACTED CURTIS AT HOSPICE AT [phone] AND FAXED HER DOCUMENTS TO [phone]. WAITING FOR CALL BACK. CM WILL FOLLOW AND ASSIST NEEDED. Gas Mask Inspector: Jaleesa Daniels DCP- Discharge Planning Updated by [id number]: Chelsea Girard on 04/04/19 12:[address] Patient Name: CK MCCARTHY Admission Status: ER Accout number: [id number] Admission Date: 04-02-2019 : 1930 Admission Diagnosis: Attending: THIAGO RAGLAND Current LOS: 2 Anticipated DC Date: Planned Disposition: SNF w Planned Readmission Primary Insurance: MEDICARE A & B Discharge Planning Comments: CM went to patient's room to discuss discharging planning, he is asleep and not awakened. I called his , Grace, to discuss discharge planning. She states he has been in the skilled therapy at [facility] for about a week and a half. She states the discharge plan is to return there. States mcfp plan is to return home with her. States he has a cane and a walker at home. I called meghan Araujo for [facility], and clinical faxed. CM will continue to follow and assist with discharge planning/needs. Gas Mask Inspector: Chelsea Girard DCPIA - Discharge Planning Initial Assessment Updated by [id number]: Chelsea Girard on 04/04/19 1:39 pm * Is the patient Alert and Oriented? No * How many steps to enter\exit or inside your home? 0/1 * PCP Dr. Webb in [place] * Pharmacy [facility] in [place] * Preadmission Environment [facility] Facility * Facility Name [facility] * ADLs Total Dependent * Equipment Cane Walker * List name and contact numbers for known caregivers / representatives who currently or will assist patient after discharge: Grace Mccarthy - spouse - H [phone] C [phone] * Verbal permission to speak to the caregivers and representatives has been obtained from the patient. Yes * Community resources currently utilized None * Additional services required to return to the preadmission environment? No * Can the patient safely return to the preadmission environment? Yes * Has this patient been hospitalized within the prior 30 days at any hospital? No Coverage Notice Reviewer: [id number] Will Girard Notice Issued Date-Time: 04/04/2019 13:44 Notice Type: Patient Choice Letter Notice Delivered To: Family Member Relationship to Patient: Spouse Motion Picture Operator Name: Grace Winter Delivery Method: PHONE - Phone Holly Days: Prior Verbal Notification: Recipient Understood Notice: Yes Recipient Signature: Yes Med Rec Note Co-signed by Attending: Coverage Notice Comment: CHRISTA for [facility] Last DP export: 04/09/19 2:36 p Patient Name: CK MCCARTHY Page 70602 at 1653 All edits/amendments must be made on the electronic document DICTATION DATE: 04/09/191652 PERIODICALS LIBRARY ASSISTANT: ROSALIND 04/09/191652 RPT#: [id number] DC DATE: STATUS: ADM IN [facility] [address] [place] [address] END OF REPORT
[2019-04-09 17:33] VITALS: BP 136/65
[2019-04-09 20:00] VITALS: BP 138/64
--- NOTE | 2019-04-10 00:05 | NUR ---
1930) rec'd chge of shift at bedside.feeding dinner declined meds in apple sauce.will continue to monitor for any chges.and follow current plan of care.
[2019-04-10 06:33] VITALS: BP 142/73
--- NOTE | 2019-04-10 06:46 | NUR ---
I have reviewed this patient and I concur with the Shift Assessment completed by the Licensed Practical Nurse today this shift.
[2019-04-10 08:14] VITALS: BP 138/65
--- NOTE | 2019-04-10 09:38 | NUR ---
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 Wound bed is clean and there is no odor, a small amount of serous drainage and no edema. Pt is on a turn every 2 hour schedule while in bed. He is getting up to the chair with physical therapy assistance. He is on an air overlay mattress. Mepilex dressing is being used to protect pressure injury. Wound care continues to monitor.
--- NOTE | 2019-04-10 09:43 | NUR ---
PT RESTING IN BED. PT AM MEDS ADMINISTERED CRUSHED IN APPLESAUCE. PT INFUSAPORT PATENT. PT HAD EPISODE OF INCONT. PT BED LINENS CHANGED AT THIS TIME. MELY, WOUND NURSE, IN TO SEE PT. PT MEPILEX TO COCCYX CHANGED AT THIS TIME. PT HAS A STAGE TWO 5UGR9OM. NO DRAINAGE NOTED. PT DENIES NEEDS. WCTM.
[2019-04-10 10:48] LABS: BASOPHILS 0.1 % (0-2); EOSINOPHILS 0.1 % (0-7); HEMATOCRIT 32.7 % (42.0-54.0); HEMOGLOBIN 10.7 g/dL (13.5-17.5); IMMATURE GRANULOCYTES 0.4 % (0-5); LYMPHOCYTES 8.7 % (15-50); MCH 26.8 pg (26.0-34.0); MCHC 32.7 g/dL (31.0-37.0); MCV 81.8 fL (80.0-100.0); MONOCYTES 2.4 % (2-11); NEUTROPHILS 88.3 % (40-80); PLATELET COUNT 209 10x3/uL (130-400); RDW 22.3 % (11.5-14.5); WBC 18.9 10x3/uL (4.8-10.8)
[2019-04-10 10:56] LABS: CALCIUM 7.5 mg/dL (8.5-10.1); CREATININE - SERUM 1.4 mg/dL (0.6-1.3)
[2019-04-10 11:46] VITALS: BP 116/63
[2019-04-10 17:00] VITALS: BP 138/73
--- NOTE | 2019-04-10 18:03 | MORECARE ---
CASE MANAGEMENT DISCHARGE SUMMARY PATIENT: CK MCCARTHY UNIT: [id number] ADM DATE: 04/02/19 AGE: 88 : [birth year] SEX: M ROOM/BED: D.2227 AUTHOR: SALLIE,DOC PHYSICIAN: REFERRING PHYSICIAN: ELISA LU MD DATE OF SERVICE: 04/10/19 Discharge Plan Patient Name: CK MCCARTHY Facility: [facility]:[place] : 1930 Planned Disposition: SNF w Planned Readmission Anticipated Discharge Date: Discharge Date: Expected LOS: Initial Reviewer: [id number] Initial Review Date: 04/04/2019 Generated: 04/10/19 7:03 pm Comments DCP- Discharge Planning Updated by [email or web address]: Khloe Rojas on 04/10/19 4:[address] LATE ENTRY 0845 CN RECEIVED TELPHONE CALL FROMCURTIS VOLODYMYR W/ [facility]. SHE RECEIVED A TELEPHONE CALL FROM THE . THEY WILL NOT BE TAKING THE PATIENT HOME ON HOSPICE. [facility] HAD ARRANGED FOR DME TO BE DELIVERED TODAY W/ PLANNED ADMISSION. THE HAD CONTACTED [facility] WITH REQUEST FOR A REHAB BED. SPOKE W/ FREDDIE WEBB. SHE STATES SHE HAD ADVISED THE HOSPICE WOULD BE MORE APPROPRIATE. THE DID NOT WISH TO PAY ROOM AND BOARD FOR THE HOSPICE BED AT FACILITY. JESSA PEYTON FROM [facility] VISITED ON SITE. THE PATIENT'S HAD CALLED HER. SPOKE THE PATIENT. SHE STATED SHE WOULD CALL THE SHE FELT HE WOULD NOT TOLERATE THERAPY FOR SKILLED. CM RECEIVED A TELEPHONE CALL FROM THE . SHE STATED SHE HAD SPOKEN WITH AIDEN AT [facility] AND SHE WAS AWAITING CLINICAL. REPORTS JESSA HAD NOT SPOKEN WITH HER. CM CALLED AIDEN. FAXED CLINICAL. AWAIT CB. 3150 TC TO THE / HER VOICE MAIL WAS FULL AND COULD NOT ACCEPT MESSAGES. DCP- Discharge Planning Updated by [email or web address]: Jaleesa Daniels on 04/09/19 3:[address] Patient Name: CK MCCARTHY Admission Status: ER Accout number: [id number] Admission Date: 04-02-2019 : 1930 Admission Diagnosis:DYSPHAGIA, UNSPECIFIED Attending: ELISA LU Current LOS: 7 Anticipated DC Date: Planned Disposition: SNF w Planned Readmission Primary Insurance: MEDICARE A & B Discharge Planning Comments: CM SPOKE WITH CURTIS AT [facility] IN [place] AN D THEY CAN ADMIT PATIENT TOMORROW AFTER DC TO HOME. [facility]OSPICE NUMBER IS [phone] LU OFFICE CONTACTED AND LEFT MSG FOR MD REGARDING IF ANTIBIOTICS ARE TO BE CONTINUED OR NOT AND PATIENT ACCEPTED WITH HOSPICE. CM TO FOLLOW AND ASSIST. Embossed Or Impressed Lettering Painter: Jaleesa Daniels Appended by Jaleesa Daniels on 04/09/2019 15:36 CDT: [facility] CALLED AND THEY ARE DELIVERING PATIENT DME TO THE HOME ABOUT 1030 AM TOMORROW (). PLEASE LET HOSPICE KNOW WHEN PATIENT IS DC'D FROM HERE AND HEADED HOME. THX Appended by Jaleesa Daniels on 04/09/2019 16:52 CDT: PATIENT'S PAT IS HERE AND REQUESTS TO SPEAK TO MD ABOUT PATIENT'S PROGNOSIS. SHE MAY NOT WANT HOME HOSPICE, SHAYAN AT DR LU OFFICE NOTIFIED. JITENDRA ANDREWS NOTIFIED IS UNSURE NOW IF HOSPICE IS BEST CHOICE. CM WILL CALL [facility] AND NOTIFY OF POSSIBLE CHANGE. DCP- Discharge Planning Updated by [id number]: Jaleesa Daniels on 04/09/19 11:[address] Patient Name: CK MCCARTHY Admission Status: ER Accout number: [id number] Admission Date: 04-02-2019 : 1930 Admission Diagnosis:DYSPHAGIA, UNSPECIFIED Attending: ELISA LU Current LOS: 7 Anticipated DC Date: Planned Disposition: SNF w Planned Readmission Primary Insurance: MEDICARE A & B Discharge Planning Comments: CM SPOKE WITH PATIENT FAMILY BY PHONE AND THEY ARE INTERESTED IN HOSPICE. FAMILY STATES WANTS [facility] IN [place]. I CONTACTED CURTIS AT HOSPICE AT [phone] AND FAXED HER DOCUMENTS TO [phone]. WAITING FOR CALL BACK. CM WILL FOLLOW AND ASSIST NEEDED. Embossed Or Impressed Lettering Painter: Jaleesa Daniels DCP- Discharge Planning Updated by [email or web address]: Chelsea Girard on 04/04/19 12:[address] Patient Name: CK MCCARTHY Admission Status: ER Accout number: [id number] Admission Date: 04-02-2019 : 1930 Admission Diagnosis: Attending: THIAGO RAGLAND Current LOS: 2 Anticipated DC Date: Planned Disposition: SNF w Planned Readmission Primary Insurance: MEDICARE A & B Discharge Planning Comments: CM went to patient's room to discuss discharging planning, he is asleep and not awakened. I called his , Grace, to discuss discharge planning. She states he has been in the skilled therapy at [facility] for about a week and a half. She states the discharge plan is to return there. States fdc plan is to return home with her. States he has a cane and a walker at home. I called meghan Araujo for [facility], and clinical faxed. CM will continue to follow and assist with discharge planning/needs. Embossed Or Impressed Lettering Painter: Chelsea Girard DCPIA - Discharge Planning Initial Assessment Updated by [id number]: Chelsea Girard on 04/04/19 1:39 pm * Is the patient Alert and Oriented? No * How many steps to enter\exit or inside your home? 0/1 * PCP Dr. Webb in [place] * Pharmacy [facility] in [place] * Preadmission Environment [facility] Facility * Facility Name [facility] * ADLs Total Dependent * Equipment Cane Walker * List name and contact numbers for known caregivers / representatives who currently or will assist patient after discharge: Grace Mccarthy - spouse - H [phone] C [phone] * Verbal permission to speak to the caregivers and representatives has been obtained from the patient. Yes * Community resources currently utilized None * Additional services required to return to the preadmission environment? No * Can the patient safely return to the preadmission environment? Yes * Has this patient been hospitalized within the prior 30 days at any hospital? No Coverage Notice Reviewer: [id number] - Chelsea Girard Notice Issued Date-Time: 04/04/2019 13:44 Notice Type: Patient Choice Letter Notice Delivered To: Family Member Relationship to Patient: Spouse Marine Erector Name: Grace Winter Delivery Method: PHONE - Phone Holly Days: Prior Verbal Notification: Recipient Understood Notice: Yes Recipient Signature: Yes Med Rec Note Co-signed by Attending: Coverage Notice Comment: CHRISTA for [facility] Last DP export: 04/09/19 3:53 p Patient Name: CK MCCARTHY Page 51779 at 1803 All edits/amendments must be made on the electronic document DICTATION DATE: 04/10/191802 CHIEF MEDICAL DIRECTOR: ROSALIND 04/10/191802 RPT#: [id number] DC DATE: STATUS: ADM IN [facility] [address] [place] [address] END OF REPORT
[2019-04-10 20:00] VITALS: BP 140/65
[2019-04-11] VITALS: BP 130/61
--- NOTE | 2019-04-11 03:48 | NUR ---
I have reviewed this patient and I concur with the Shift Assessment completed by the Licensed Practical Nurse today this shift.
[2019-04-11 04:00] VITALS: BP 139/71
[2019-04-11 09:12] VITALS: BP 120/69
[2019-04-11 12:09] VITALS: BP 101/59
--- NOTE | 2019-04-11 12:10 | MORECARE ---
CASE MANAGEMENT DISCHARGE SUMMARY PATIENT: CK MCCARTHY UNIT: [id number] ADM DATE: 04/02/19 AGE: 88 : [birth year] SEX: M ROOM/BED: D.2227 AUTHOR: SALLIE,DOC PHYSICIAN: REFERRING PHYSICIAN: ELISA BARNETT MD DATE OF SERVICE: 04/11/19 Discharge Plan Patient Name: CK MCCARTHY Facility: [facility]:Revloc : 1930 Planned Disposition: SNF w Planned Readmission Anticipated Discharge Date: Discharge Date: Expected LOS: Initial Reviewer: [id number] Initial Review Date: 04/04/2019 Generated: 04/11/19 1:09 pm Comments DCP- Discharge Planning Updated by [id number]: Chelsea Gloriabee on 04/11/19 11:[address] Loretta with [facility] called and states they cannot accept patient for SNF, he is not appropriate for skilled therapy and she has notified the . Curtis with [facility] called and states that patient's called and states she would like to bring her home on Hospice. I spoke with patient's via phone and she states that she does want him home with [facility] and that someone would be there with him 16/05. I informed her that if he declined, that Curtis states they do have a IP contract with [facility] in [place] or they may be able to get him back to [facility] with hospice at a later date. I spoke with Dr. Barnett's office and informed that he would need a discharge in the morning once [facility] has the equipment set up. CM will continue to follow and assist with discharge planning/needs. DCP- Discharge Planning Updated by [id number]: Khloe Rojas on 04/10/19 4:[address] LATE ENTRY 0845 CN RECEIVED TELPHONE CALL FROMCURTIS HELM W/ [facility]. SHE RECEIVED A TELEPHONE CALL FROM THE . THEY WILL NOT BE TAKING THE PATIENT HOME ON HOSPICE. [facility] HAD ARRANGED FOR DME TO BE DELIVERED TODAY W/ PLANNED ADMISSION. THE HAD CONTACTED [facility] WITH REQUEST FOR A REHAB BED. CM SPOKE W/ FREDDIE GOLD. SHE STATES SHE HAD ADVISED THE HOSPICE WOULD BE MORE APPROPRIATE. THE DID NOT WISH TO PAY ROOM AND BOARD FOR THE HOSPICE BED AT FACILITY. JESSA TODD FROM [facility] VISITED ON SITE. THE PATIENT'S HAD CALLED HER. SPOKE THE PATIENT. SHE STATED SHE WOULD CALL THE SHE FELT HE WOULD NOT TOLERATE THERAPY FOR SKILLED. CM RECEIVED A TELEPHONE CALL FROM THE . SHE STATED SHE HAD SPOKEN WITH AIDEN AT [facility] AND SHE WAS AWAITING CLINICAL. REPORTS JESSA HAD NOT SPOKEN WITH HER. CM CALLED AIDEN. FAXED CLINICAL. AWAIT CB. 1610 TC TO THE / HER VOICE MAIL WAS FULL AND COULD NOT ACCEPT MESSAGES. DCP- Discharge Planning Updated by [id number]: Jaleesa Daniels on 04/09/19 3:[address] Patient Name: CK MCCARTHY Admission Status: ER Accout number: [id number] Admission Date: 04-02-2019 : 1930 Admission Diagnosis:DYSPHAGIA, UNSPECIFIED Attending: ELISA BARNETT Current LOS: 7 Anticipated DC Date: Planned Disposition: SNF w Planned Readmission Primary Insurance: MEDICARE A & B Discharge Planning Comments: CM SPOKE WITH CURTIS AT [facility] IN [facility] D THEY CAN ADMIT PATIENT TOMORROW AFTER DC TO HOME. [facility] NUMBER IS [phone]. SHAYAN AT DR. BARNETT OFFICE CONTACTED AND LEFT [facility] FOR MD REGARDING IF ANTIBIOTICS ARE TO BE CONTINUED OR NOT AND PATIENT ACCEPTED WITH HOSPICE. CM TO FOLLOW AND ASSIST. Electronic Components Assembler: Jaleesa Daniels Appended by Jaleesa Daniels on 04/09/2019 15:36 CDT: [facility] CALLED AND THEY ARE DELIVERING PATIENT DME TO THE HOME ABOUT 1030 AM TOMORROW (). PLEASE LET HOSPICE KNOW WHEN PATIENT IS DC'D FROM HERE AND HEADED HOME. THX Appended by Jaleesa Daniels on 04/09/2019 16:52 CDT: PATIENT'S PAT IS HERE AND REQUESTS TO SPEAK TO MD ABOUT PATIENT'S PROGNOSIS. SHE MAY NOT WANT HOME HOSPICE, SHAYAN AT DR BARNETT OFFICE NOTIFIED. JITENDRA ANDREWS NOTIFIED IS UNSURE NOW IF HOSPICE IS BEST CHOICE. CM WILL CALL [facility] AND NOTIFY OF POSSIBLE CHANGE. DCP- Discharge Planning Updated by [id number]: Jaleesa Daniels on 04/09/19 11:[address] Patient Name: CK MCCARTHY Admission Status: ER Accout number: [id number] Admission Date: 04-02-2019 : 1930 Admission Diagnosis:DYSPHAGIA, UNSPECIFIED Attending: ELISA BARNETT Current LOS: 7 Anticipated DC Date: Planned Disposition: SNF w Planned Readmission Primary Insurance: MEDICARE A & B Discharge Planning Comments: CM SPOKE WITH PATIENT FAMILY BY PHONE AND THEY ARE INTERESTED IN HOSPICE. FAMILY STATES WANTS [facility] IN [place]. I CONTACTED CURTIS AT HOSPICE AT [phone] AND FAXED HER DOCUMENTS TO [phone]. WAITING FOR CALL BACK. CM WILL FOLLOW AND ASSIST NEEDED. Electronic Components Assembler: Jaleesa Daniels DCP- Discharge Planning Updated by [id number]: Chelsea Girard on 04/04/19 12:[address] Patient Name: CK MCCARTHY Admission Status: ER Accout number: [id number] Admission Date: 04-02-2019 : 1930 Admission Diagnosis: Attending: THIAGO RAGLAND Current LOS: 2 Anticipated DC Date: Planned Disposition: SNF w Planned Readmission Primary Insurance: MEDICARE A & B Discharge Planning Comments: CM went to patient's room to discuss discharging planning, he is asleep and not awakened. I called his , Grace, to discuss discharge planning. She states he has been in the skilled therapy at [facility] for about a week and a half. She states the discharge plan is to return there. States ferry terminal agent plan is to return home with her. States he has a cane and a walker at home. I called meghan Araujo for [facility], and clinical faxed. CM will continue to follow and assist with discharge planning/needs. Electronic Components Assembler: Chelsea Girard DCPIA - Discharge Planning Initial Assessment Updated by [email or web address]: Chelsea Girard on 04/04/19 1:39 pm * Is the patient Alert and Oriented? No * How many steps to enter\exit or inside your home? 0/1 * PCP Dr. Gold in [place] * Pharmacy [facility] in [place] * [facility]read[facility] * Facility Name [facility] * ADLs Total Dependent * Equipment Cane Walker * List name and contact numbers for known caregivers / representatives who currently or will assist patient after discharge: Grace Mccarthy - spouse - H [phone] C [phone] * Verbal permission to speak to the caregivers and representatives has been obtained from the patient. Yes * Community resources currently utilized None * Additional services required to return to the preadmission environment? No * Can the patient safely return to the preadmission environment? Yes * Has this patient been hospitalized within the prior 30 days at any hospital? No Coverage Notice Reviewer: [id number] Will Girard Notice Issued Date-Time: 04/04/2019 13:44 Notice Type: Patient Choice Letter Notice Delivered To: Family Member Relationship to Patient: Spouse Studio Director Name: Grace Winter Delivery Method: PHONE - Phone Holly Days: Prior Verbal Notification: Recipient Understood Notice: Yes Recipient Signature: Yes Med Rec Note Co-signed by Attending: Coverage Notice Comment: CHRISTA for Teresa De Leon Last DP export: 04/10/19 5:03 p Patient Name: CK MCCARTYH Page [id number] at 1210 All edits/amendments must be made on the electronic document DICTATION DATE: 04/11/19 120 DEPUTY COUNTY CLERK: ROSALIND 04/11/19 1209 RPT#: [id number] DC DATE: STATUS: ADM IN [facility] [address] [place] [address] END OF REPORT
--- NOTE | 2019-04-11 12:58 | NUR ---
NUTRITION F/U PUREED DIET WITH NECTAR LIQUIDS. ENSURE. REQUIRES FEEDING ASSIST. POOR INTAKE RECENT MEALS. ONLY A FEW BITES AT LUNCH TODAY. NOTE POSSIBLE DC TO HOSPICE. RD FOLLOWING
[2019-04-11 16:24] VITALS: BP 132/60
--- NOTE | 2019-04-11 19:51 | NUR ---
PATIENT IN BED WITH IV INTACT, NO COMPLAINTS OR SIGNS OF DISTRESS. CALL LIGHT WITHIN REACH. BA ON.
--- NOTE | 2019-04-11 19:51 | NUR ---
PATIENT IN BED WITH IV INTACT. NO COMPLAINTS OR SIGNS OF DISTRESS. FAMILY AT BEDSIDE. CALL LIGHT WITHIN REACH.
--- NOTE | 2019-04-11 20:34 | NUR ---
REC'D SITTING UP IN BED.H20 OFFERED REFUSED.VERBALLY RESPONDS WHEN ASKED QUESTION SPEECH SLURRED. WILL CONTINUE TO MONITOR FOR ANY CHGES AND FOLLOW CURRENT PLAN OF CARE. FALL PRECAUTIONS IN PLACE
[2019-04-11 20:56] VITALS: BP 125/64
--- NOTE | 2019-04-12 02:01 | NUR ---
I have reviewed this patient and I concur with the Shift Assessment completed by the Licensed Practical Nurse today this shift.
[2019-04-12 05:23] VITALS: BP 132/65
--- NOTE | 2019-04-12 08:45 | NUR ---
PATIENT IN BED WITH IV INTACT.N O COMPLAINTS. STUDENT NURSE STATED PATIENT ONLY ATE A SMALL AMOUNT. PATIENT STATED HE DID NOT WANT ANYTHING ELSE AT THIS TIME. CALL LIGHT WITHIN REACH.
[2019-04-12 08:55] VITALS: BP 144/66
[2019-04-12] MEDS ORDERED: DIFLUCAN100 MG PO (09:53)
[2019-04-12] MEDS ORDERED: Nystatin Oral Susp [ PO (09:53)
[2019-04-12] MEDS ORDERED: K-TAB10 MEQ PO (09:54)
[2019-04-12] MEDS ORDERED: LASIX20 MG PO (09:54)
[2019-04-12] MEDS ORDERED: PROTONIX40 MG PO (09:55)
[2019-04-12] MEDS ORDERED: CARAFATE1 G PO (09:55)
--- NOTE | 2019-04-12 10:49 | MORECARE ---
CASE MANAGEMENT DISCHARGE SUMMARY PATIENT: CK MCCARTHY UNIT: [id number] ADM DATE: 04/02/19 AGE: 88 : [birth year] SEX: M ROOM/BED: D.2227 AUTHOR: SALLIE,DOC PHYSICIAN: REFERRING PHYSICIAN: ELISA BARNETT MD DATE OF SERVICE: 04/12/19 Discharge Plan Patient Name: CK MCCARTHY Facility: [facility]:[place] : 1930 Planned Disposition: SNF w Planned Readmission Anticipated Discharge Date: Discharge Date: Expected LOS: Initial Reviewer: [email or web address] Initial Review Date: 04/04/2019 Generated: 04/12/19 11:49 am Comments DCP- Discharge Planning Updated by [id number]: Chelsea Era on 04/11/19 11:[address] Loretta with [facility] called and states they cannot accept patient for SNF, he is not appropriate for skilled therapy and she has notified the . Curtis with [facility] called and states that patient's called and states she would like to bring her home on Hospice. I spoke with patient's via phone and she states that she does want him home with [facility] and that someone would be there with him 16/05. I informed her that if he declined, that Curtis states they do have a IP contract with [facility] in [place] or they may be able to get him back to [facility] with hospice at a later date. I spoke with Dr. Barnett's office and informed that he would need a discharge in the morning once [facility] has the equipment set up. CM will continue to follow and assist with discharge planning/needs. DCP- Discharge Planning Updated by [id number]: Khloe Rojas on 04/10/19 4:[address] LATE ENTRY 0845 CN RECEIVED TELPHONE CALL FROMCURTIS HELM W/ [facility]. SHE RECEIVED A TELEPHONE CALL FROM THE . THEY WILL NOT BE TAKING THE PATIENT HOME ON HOSPICE. [facility] HAD ARRANGED FOR DME TO BE DELIVERED TODAY W/ PLANNED ADMISSION. THE HAD CONTACTED [facility] WITH REQUEST FOR A REHAB BED. CM SPOKE W/ FREDDIE WEBB. SHE STATES SHE HAD ADVISED THE HOSPICE WOULD BE MORE APPROPRIATE. THE DID NOT WISH TO PAY ROOM AND BOARD FOR THE HOSPICE BED AT FACILITY. JESSA TODD FROM [facility] VISITED ON SITE. THE PATIENT'S HAD CALLED HER. SPOKE THE PATIENT. SHE STATED SHE WOULD CALL THE SHE FELT HE WOULD NOT TOLERATE THERAPY FOR SKILLED. CM RECEIVED A TELEPHONE CALL FROM THE . SHE STATED SHE HAD SPOKEN WITH AIDEN AT [facility] AND SHE WAS AWAITING CLINICAL. REPORTS JESSA HAD NOT SPOKEN WITH HER. CM CALLED AIDEN. FAXED CLINICAL. AWAIT CB. 1610 TC TO THE / HER VOICE MAIL WAS FULL AND COULD NOT ACCEPT MESSAGES. DCP- Discharge Planning Updated by [id number]: Jaleesa Daniels on 04/09/19 3:[address] Patient Name: CK MCCARTHY Admission Status: ER Accout number: [id number] Admission Date: 04-02-2019 : 1930 Admission Diagnosis:DYSPHAGIA, UNSPECIFIED Attending: ELISA BARNETT Current LOS: 7 Anticipated DC Date: Planned Disposition: SNF w Planned Readmission Primary Insurance: MEDICARE A & B Discharge Planning Comments: CM SPOKE WITH CURTIS AT [facility] IN [facility] D THEY CAN ADMIT PATIENT TOMORROW AFTER DC TO HOME. [facility] NUMBER IS [phone]. SHAYAN AT DR. BARNETT OFFICE CONTACTED AND LEFT [facility] FOR MD REGARDING IF ANTIBIOTICS ARE TO BE CONTINUED OR NOT AND PATIENT ACCEPTED WITH HOSPICE. CM TO FOLLOW AND ASSIST. Metal Furnace Operator: Jaleesa Daniels Appended by Jaleesa Daniels on 04/09/2019 15:36 CDT: [facility] CALLED AND THEY ARE DELIVERING PATIENT DME TO THE HOME ABOUT 1030 AM TOMORROW (). PLEASE LET HOSPICE KNOW WHEN PATIENT IS DC'D FROM HERE AND HEADED HOME. THX Appended by Jaleesa Daniels on 04/09/2019 16:52 CDT: PATIENT'S PAT IS HERE AND REQUESTS TO SPEAK TO MD ABOUT PATIENT'S PROGNOSIS. SHE MAY NOT WANT HOME HOSPICE, SHAYAN AT DR BARNETT OFFICE NOTIFIED. JITENDRA ANDREWS NOTIFIED IS UNSURE NOW IF HOSPICE IS BEST CHOICE. CM WILL CALL [facility] AND NOTIFY OF POSSIBLE CHANGE. DCP- Discharge Planning Updated by [id number]: Jaleesa Daniels on 04/09/19 11:[address] Patient Name: CK MCCARTHY Admission Status: ER Accout number: [id number] Admission Date: 04-02-2019 : 1930 Admission Diagnosis:DYSPHAGIA, UNSPECIFIED Attending: ELISA BARNETT Current LOS: 7 Anticipated DC Date: Planned Disposition: SNF w Planned Readmission Primary Insurance: MEDICARE A & B Discharge Planning Comments: CM SPOKE WITH PATIENT FAMILY BY PHONE AND THEY ARE INTERESTED IN HOSPICE. FAMILY STATES WANTS [facility] IN [place]. I CONTACTED CURTIS AT HOSPICE AT [phone] AND FAXED HER DOCUMENTS TO [phone]. WAITING FOR CALL BACK. CM WILL FOLLOW AND ASSIST NEEDED. Metal Furnace Operator: Jaleesa Daniels DCP- Discharge Planning Updated by [id number]: Chelsea Girard on 04/04/19 12:[address] Patient Name: CK MCCARTHY Admission Status: ER Accout number: [id number] Admission Date: 04-02-2019 : 1930 Admission Diagnosis: Attending: THIAGO RAGLAND Current LOS: 2 Anticipated DC Date: Planned Disposition: SNF w Planned Readmission Primary Insurance: MEDICARE A & B Discharge Planning Comments: CM went to patient's room to discuss discharging planning, he is asleep and not awakened. I called his , Grace, to discuss discharge planning. She states he has been in the skilled therapy at [facility] for about a week and a half. She states the discharge plan is to return there. States chcf plan is to return home with her. States he has a cane and a walker at home. I called meghan Araujo for [facility], and clinical faxed. CM will continue to follow and assist with discharge planning/needs. Metal Furnace Operator: Chelsea Girard DCPIA - Discharge Planning Initial Assessment Updated by [id number]: Chelsea Girard on 04/04/19 1:39 pm * Is the patient Alert and Oriented? No * How many steps to enter\exit or inside your home? 0/1 * PCP Dr. Webb in [place] * Pharmacy [facility] in [place] * Preadmission Environment [facility] * Facility Name [facility] * ADLs Total Dependent * Equipment Cane Walker * List name and contact numbers for known caregivers / representatives who currently or will assist patient after discharge: Grace Mccarthy - spouse - H [phone] C [phone] * Verbal permission to speak to the caregivers and representatives has been obtained from the patient. Yes * Community resources currently utilized None * Additional services required to return to the preadmission environment? No * Can the patient safely return to the preadmission environment? Yes * Has this patient been hospitalized within the prior 30 days at any hospital? No External Providers External Provider: [facility] [place] Next Contact Date: Service Request Date: Service Type: Resolution: Reviewer: Comments: Coverage Notice Reviewer: [id number] Will Girard Notice Issued Date-Time: 04/04/2019 13:44 Notice Type: Patient Choice Letter Notice Delivered To: Family Member Relationship to Patient: Spouse Welding Specialist Name: Grace Wintre Delivery Method: PHONE - Phone Holly Days: Prior Verbal Notification: Recipient Understood Notice: Yes Recipient Signature: Yes Med Rec Note Co-signed by Attending: Coverage Notice Comment: CHRISTA for Teresa De Leon Last DP export: 04/11/19 11:09 a Patient Name: CK MCCARTHY Page 40584 at 1049 All edits/amendments must be made on the electronic document DICTATION DATE: 04/12/191047 BOOK JOGGER: ROSALIND 04/12/191047 RPT#: [id number] DC DATE: STATUS: ADM IN [facility] [address] [place] [address] END OF REPORT
--- NOTE | 2019-04-12 11:00 | MORECARE ---
CASE MANAGEMENT DISCHARGE SUMMARY PATIENT: CK MCCARTHY UNIT: [id number] ADM DATE: 04/02/19 AGE: 88 : [birth year] SEX: M ROOM/BED: D.2227 AUTHOR: SALLIE,DOC PHYSICIAN: REFERRING PHYSICIAN: ELISA BARNETT MD DATE OF SERVICE: 04/12/19 Discharge Plan Patient Name: CK MCCARTHY Facility: [facility]:[place] : 1930 Planned Disposition: SNF w Planned Readmission Anticipated Discharge Date: Discharge Date: Expected LOS: Initial Reviewer: [id number] Initial Review Date: 04/04/2019 Generated: 04/12/19 11:59 am Comments DCP- Discharge Planning Updated by [email or web address]: Chelsea Era on 04/12/19 9:[address] Received discharge order. I faxed discharge order, meds, MAR, summary to [facility]. I spoke with Curtis Acevedo and informed of discharge order. Will need to call when ambulance is here to take patient home. I called patient's and she agrees with discharge plan. She states that the equipment is being set up now. [facility] has ordered hospital bed, walker, wheelchair, BSC, over the bed table and protective pad. He is going home today with [facility]. states that there will be someone with him 16/05. CM will continue to follow and assist with discharge planning/needs. DCP- Discharge Planning Updated by [id number]: Chelsea Girard on 04/11/19 11:[address] Loretta with [facility] called and states they cannot accept patient for SNF, he is not appropriate for skilled therapy and she has notified the . Curtis with [facility] called and states that patient's called and states she would like to bring her home on Hospice. I spoke with patient's via phone and she states that she does want him home with [facility] and that someone would be there with him 16/05. I informed her that if he declined, that Curtis states they do have a IP contract with [facility] in [place] or they may be able to get him back to [facility] with hospice at a later date. I spoke with Dr. Barnett's office and informed that he would need a discharge in the morning once [facility] has the equipment set up. CM will continue to follow and assist with discharge planning/needs. DCP- Discharge Planning Updated by [id number]: Khloe Rojas on 04/10/19 4:[address] LATE ENTRY 0845 CN RECEIVED TELPHONE CALL FROMCURTIS ACEVEDO W/ [facility] [place]. SHE RECEIVED A TELEPHONE CALL FROM THE . THEY WILL NOT BE TAKING THE PATIENT HOME ON HOSPICE. [facility] HAD ARRANGED FOR DME TO BE DELIVERED TODAY W/ PLANNED ADMISSION. THE HAD CONTACTED [facility] WITH REQUEST FOR A REHAB BED. CM SPOKE W/ FREDDIE WEBB. SHE STATES SHE HAD ADVISED THE HOSPICE WOULD BE MORE APPROPRIATE. THE DID NOT WISH TO PAY ROOM AND BOARD FOR THE HOSPICE BED AT FACILITY. JESSA TODD FROM [facility] VISITED ON SITE. THE PATIENT'S HAD CALLED HER. SPOKE THE PATIENT. SHE STATED SHE WOULD CALL THE SHE FELT HE WOULD NOT TOLERATE THERAPY FOR SKILLED. CM RECEIVED A TELEPHONE CALL FROM THE . SHE STATED SHE HAD SPOKEN WITH AIDEN AT [facility] AND SHE WAS AWAITING CLINICAL. REPORTS JESSA HAD NOT SPOKEN WITH HER. CM CALLED AIDEN. FAXED CLINICAL. AWAIT CB. 1610 TC TO THE / HER VOICE MAIL WAS FULL AND COULD NOT ACCEPT MESSAGES. DCP- Discharge Planning Updated by [email or web address]: Jaleesa Daniels on 04/09/19 3:[address] Patient Name: CK MCCARTHY Admission Status: ER Accout number: [id number] Admission Date: 04-02-2019 : 1930 Admission Diagnosis:DYSPHAGIA, UNSPECIFIED Attending: ELISA BARNETT Current LOS: 7 Anticipated DC Date: Planned Disposition: SNF w Planned Readmission Primary Insurance: MEDICARE A & B Discharge Planning Comments: CM SPOKE WITH CURTIS AT [facility] [place] THEY CAN ADMIT PATIENT TOMORROW AFTER DC TO HOME. [facility] [place] NUMBER IS [phone]. [address] BARNETT OFFICE CONTACTED AND LEFT [facility] FOR MD REGARDING IF ANTIBIOTICS ARE TO BE CONTINUED OR NOT AND PATIENT ACCEPTED WITH HOSPICE. CM TO FOLLOW AND ASSIST. Invas Tech: Jaleesa Daniels Appended by Jaleesa Daniels on 04/09/2019 15:36 CDT: [facility] CALLED AND THEY ARE DELIVERING PATIENT DME TO THE HOME ABOUT 1030 AM TOMORROW (). PLEASE LET HOSPICE KNOW WHEN PATIENT IS DC'D FROM HERE AND HEADED HOME. THX Appended by Jaleesa Frances on 04/09/2019 16:52 CDT: PATIENT'S CEASAR IS HERE AND REQUESTS TO SPEAK TO MD ABOUT PATIENT'S PROGNOSIS. SHE MAY NOT WANT HOME HOSPICE, SHAYAN AT DR BARNETT OFFICE NOTIFIED. JITENDRA ANDREWS NOTIFIED IS UNSURE NOW IF HOSPICE IS BEST CHOICE. CM WILL CALL [facility] AND NOTIFY OF POSSIBLE CHANGE. DCP- Discharge Planning Updated by [email or web address]: Jalesea Daniels on 04/09/19 11:[address] Patient Name: CK MCCARTHY Admission Status: ER Accout number: [id number] Admission Date: 04-02-2019 : 1930 Admission Diagnosis:DYSPHAGIA, UNSPECIFIED Attending: ELISA BARNETT Current LOS: 7 Anticipated DC Date: Planned Disposition: SNF w Planned Readmission Primary Insurance: MEDICARE A & B Discharge Planning Comments: CM SPOKE WITH PATIENT FAMILY BY PHONE AND THEY ARE INTERESTED IN HOSPICE. FAMILY STATES WANTS [facility] IN [place]. I CONTACTED CURTIS AT HOSPICE AT [phone] AND FAXED HER DOCUMENTS TO [phone]. WAITING FOR CALL BACK. CM WILL FOLLOW AND ASSIST NEEDED. Invas Tech: Jaleesa Daniels DCP- Discharge Planning Updated by [id number]: Chelsea Girard on 04/04/19 12:[address] Patient Name: CK MCCARTHY Admission Status: ER Accout number: [id number] Admission Date: 04-02-2019 : 1930 Admission Diagnosis: Attending: THIAGO RAGLAND Current LOS: 2 Anticipated DC Date: Planned Disposition: SNF w Planned Readmission Primary Insurance: MEDICARE A & B Discharge Planning Comments: CM went to patient's room to discuss discharging planning, he is asleep and not awakened. I called his , Ceasar, to discuss discharge planning. She states he has been in the skilled therapy at [facility] for about a week and a half. She states the discharge plan is to return there. States half-way plan is to return home with her. States he has a cane and a walker at home. I called meghan Araujo for [facility], and clinical faxed. CM will continue to follow and assist with discharge planning/needs. Invas Tech: Chelsea Era DCPIA - Discharge Planning Initial Assessment Updated by [id number]: Chelsea Girard on 04/04/19 1:39 pm * Is the patient Alert and Oriented? No * How many steps to enter\exit or inside your home? 0/1 * PCP Dr. Webb in [place] * Pharmacy [facility] in [place] * Preadmission Environment [facility] Facility * Facility Name [facility] * ADLs Total Dependent * Equipment Cane Walker * List name and contact numbers for known caregivers / representatives who currently or will assist patient after discharge: Ceasar Mccarthy - spouse - H [phone] C [phone] * Verbal permission to speak to the caregivers and representatives has been obtained from the patient. Yes * Community resources currently utilized None * Additional services required to return to the preadmission environment? No * Can the patient safely return to the preadmission environment? Yes * Has this patient been hospitalized within the prior 30 days at any hospital? No Coverage Notice Reviewer: [id number] Will Girard Notice Issued Date-Time: 04/04/2019 13:44 Notice Type: Patient Choice Letter Notice Delivered To: Family Member Relationship to Patient: Spouse Camera Control Operator Name: Ceasar Winter Delivery Method: PHONE - Phone Holly Days: Prior Verbal Notification: Recipient Understood Notice: Yes Recipient Signature: Yes Med Rec Note Co-signed by Attending: Coverage Notice Comment: [facility] for [employer] Reviewer: [id number] Will Girard Notice Issued Date-Time: 04/12/2019 10:52 Notice Type: IM Discharge Notice Notice Delivered To: Family Member Relationship to Patient: Spouse Camera Control Operator Name: Ceasar Winter Delivery Method: PHONE - Phone Holly Days: Prior Verbal Notification: Recipient Understood Notice: Yes Recipient Signature: Med Rec Note Co-signed by Attending: Coverage Notice Comment: IMM explained, signed, left at bedside, copy placed in MR Last DP export: 04/12/19 9:49 a Patient Name: CK MCCARTHY Page 11747 at 1100 All edits/amendments must be made on the electronic document DICTATION DATE: 04/12/191058 INSTRUMENTATION AND CONTROL TECHNICIAN: ROSALIND 04/12/19 105 RPT#: [id number] DC DATE: STATUS: ADM IN [facility] [address] [place] [address] END OF REPORT
--- NOTE | 2019-04-12 11:55 | NUR ---
PATIENT PORT ACCESS REMOVED AFTER FLUSHED WITH SALINE AND THEN HEPARIN FLUSH AT THIS TIME. PATIENT TOLERATED WITH NO PAIN. CHANGED BY STUDENT NURSES AND BELONGINGS GATHERED. PATIENT RECIEVED DC INSTRUCTIONS. VERBALIZED UNDERSTANDING. NO QUESTIONS AT THIS TIME. CALL LIGHT WITHIN REACH.
--- NOTE | 2019-04-12 12:05 | NUR ---
PATIENT ESCORTED OUT OF HOSPITAL VIA STRETCHER TO AMBULANCE WITH PERSONAL BELONGINGS.
[2019-04-12 12:24] VITALS: BP 119/60
--- NOTE | 2019-04-20 09:05 | MORECARE ---
CASE MANAGEMENT DISCHARGE SUMMARY PATIENT: CK MCCARTHY UNIT: [id number] ADM DATE: 04/02/19 AGE: 88 : [birth year] SEX: M ROOM/BED: D.2227 AUTHOR: SALLIE,DOC PHYSICIAN: REFERRING PHYSICIAN: ELISA BARNETT MD DATE OF SERVICE: 04/20/19 Discharge Plan Patient Name: CK MCCARTHY Facility: [facility]:[place] : 1930 Planned Disposition: SNF w Planned Readmission Anticipated Discharge Date: Discharge Date: 04/12/2019 Expected LOS: 0 Initial Reviewer: [email or web address] Initial Review Date: 04/04/2019 Generated: 04/20/19 10:05 am Comments DCP- Discharge Planning Updated by [id number]: Chelsea Girard on 04/12/19 9:[address] Received discharge order. I faxed discharge order, meds, MAR, summary to [facility]. I spoke with Curtis Acevedo and informed of discharge order. Will need to call when ambulance is here to take patient home. I called patient's and she agrees with discharge plan. She states that the equipment is being set up now. [facility] has ordered hospital bed, walker, wheelchair, BSC, over the bed table and protective pad. He is going home today with [facility]. states that there will be someone with him 16/05. CM will continue to follow and assist with discharge planning/needs. DCP- Discharge Planning Updated by [id number]: Chelsea Girard on 04/11/19 11:[address] Loretta with [facility] called and states they cannot accept patient for SNF, he is not appropriate for skilled therapy and she has notified the . Curtis with [facility] called and states that patient's called and states she would like to bring her home on Hospice. I spoke with patient's via phone and she states that she does want him home with [facility] and that someone would be there with him 16/05. I informed her that if he declined, that Curtis states they do have a IP contract with [facility] in [place] or they may be able to get him back to [facility] [place] with hospice at a later date. I spoke with Dr. Barnett's office and informed that he would need a discharge in the morning once [facility] has the equipment set up. CM will continue to follow and assist with discharge planning/needs. DCP- Discharge Planning Updated by [id number]: Khloe Rojas on 04/10/19 4:[address] LATE ENTRY 0845 CN RECEIVED TELPHONE CALL FROMCURTIS ACEVEDO W/ [facility]. SHE RECEIVED A TELEPHONE CALL FROM THE . THEY WILL NOT BE TAKING THE PATIENT HOME ON HOSPICE. [facility] HAD ARRANGED FOR DME TO BE DELIVERED TODAY W/ PLANNED ADMISSION. THE HAD CONTACTED [facility] WITH REQUEST FOR A REHAB BED. CM SPOKE W/ FREDDIE ALLA. SHE STATES SHE HAD ADVISED THE HOSPICE WOULD BE MORE APPROPRIATE. THE DID NOT WISH TO PAY ROOM AND BOARD FOR THE HOSPICE BED AT FACILITY. JESSA PEYTON FROM [facility] [place] VISITED ON SITE. THE PATIENT'S HAD CALLED HER. SPOKE THE PATIENT. SHE STATED SHE WOULD CALL THE SHE FELT HE WOULD NOT TOLERATE THERAPY FOR SKILLED. CM RECEIVED A TELEPHONE CALL FROM THE . SHE STATED SHE HAD SPOKEN WITH AIDEN AT [facility] [place] AND SHE WAS AWAITING CLINICAL. REPORTS JESSA HAD NOT SPOKEN WITH HER. CM CALLED AIDEN. FAXED CLINICAL. AWAIT CB. 1610 TC TO THE / HER VOICE MAIL WAS FULL AND COULD NOT ACCEPT MESSAGES. DCP- Discharge Planning Updated by [id number]: Jaleesa Daniels on 04/09/19 3:[address] Patient Name: CK MCCARTHY Admission Status: ER Accout number: [id number] Admission Date: 04-02-2019 : 1930 Admission Diagnosis:DYSPHAGIA, UNSPECIFIED Attending: ELISA BARNETT Current LOS: 7 Anticipated DC Date: Planned Disposition: SNF w Planned Readmission Primary Insurance: MEDICARE A & B Discharge Planning Comments: CM SPOKE WITH CURTIS AT [facility] THEY CAN ADMIT PATIENT TOMORROW AFTER DC TO HOME. [facility] NUMBER IS [phone]. [address] BARNETT OFFICE CONTACTED AND LEFT [facility] FOR MD REGARDING IF ANTIBIOTICS ARE TO BE CONTINUED OR NOT AND PATIENT ACCEPTED WITH HOSPICE. CM TO FOLLOW AND ASSIST. Truck Mechanic Apprentice: Jaleesa Daniels Appended by Jaleesa Daniels on 04/09/2019 15:36 CDT: [facility] CALLED AND THEY ARE DELIVERING PATIENT DME TO THE HOME ABOUT 1030 AM TOMORROW (). PLEASE LET HOSPICE KNOW WHEN PATIENT IS DC'D FROM HERE AND HEADED HOME. THX Appended by Jaleesa Daniels on 04/09/2019 16:52 CDT: PATIENT'S CEASAR IS HERE AND REQUESTS TO SPEAK TO MD ABOUT PATIENT'S PROGNOSIS. SHE MAY NOT WANT HOME HOSPICE, SHAYAN AT DR BARNETT OFFICE NOTIFIED. JITENDRA ANDREWS NOTIFIED IS UNSURE NOW IF HOSPICE IS BEST CHOICE. CM WILL CALL [facility] AND NOTIFY OF POSSIBLE CHANGE. DCP- Discharge Planning Updated by [id number]: Jaleesa Frances on 04/09/19 11:[address] Patient Name: CK MCCARTHY Admission Status: ER Accout number: [id number] Admission Date: 04-02-2019 : 1930 Admission Diagnosis:DYSPHAGIA, UNSPECIFIED Attending: ELISA BARNETT Current LOS: 7 Anticipated DC Date: Planned Disposition: SNF w Planned Readmission Primary Insurance: MEDICARE A & B Discharge Planning Comments: CM SPOKE WITH PATIENT FAMILY BY PHONE AND THEY ARE INTERESTED IN HOSPICE. FAMILY STATES WANTS [facility] IN [place]. I CONTACTED CURTIS AT HOSPICE AT [phone] AND FAXED HER DOCUMENTS TO [phone]. WAITING FOR CALL BACK. CM WILL FOLLOW AND ASSIST NEEDED. Truck Mechanic Apprentice: Jaleesa Daniels DCP- Discharge Planning Updated by [email or web address]: Chelsea Girard on 04/04/19 12:[address] Patient Name: CK MCCARTHY Admission Status: ER Accout number: [id number] Admission Date: 04-02-2019 : 1930 Admission Diagnosis: Attending: THIAGO RAGLAND Current LOS: 2 Anticipated DC Date: Planned Disposition: SNF w Planned Readmission Primary Insurance: MEDICARE A & B Discharge Planning Comments: CM went to patient's room to discuss discharging planning, he is asleep and not awakened. I called his , Ceasar, to discuss discharge planning. She states he has been in the skilled therapy at [facility] for about a week and a half. She states the discharge plan is to return there. States long-term plan is to return home with her. States he has a cane and a walker at home. I called meghan Araujo for [facility], and clinical faxed. CM will continue to follow and assist with discharge planning/needs. Truck Mechanic Apprentice: Chelsea Era DCPIA - Discharge Planning Initial Assessment Updated by [id number]: Chelsea Girard on 04/04/19 1:39 pm * Is the patient Alert and Oriented? No * How many steps to enter\exit or inside your home? 0/1 * PCP Dr. Webb in [place] * Pharmacy [facility] in [place] * Preadmission Environment Care Home Facility * Facility Name [facility] * ADLs Total Dependent * Equipment Cane Walker * List name and contact numbers for known caregivers / representatives who currently or will assist patient after discharge: Ceasar Mccarthy - spouse - H [phone] C [phone] * Verbal permission to speak to the caregivers and representatives has been obtained from the patient. Yes * Community resources currently utilized None * Additional services required to return to the preadmission environment? No * Can the patient safely return to the preadmission environment? Yes * Has this patient been hospitalized within the prior 30 days at any hospital? No Coverage Notice Reviewer: [id number] Will Girard Notice Issued Date-Time: 04/04/2019 13:44 Notice Type: Patient Choice Letter Notice Delivered To: Family Member Relationship to Patient: Spouse Edge Drummer Name: Ceasar Winter Delivery Method: PHONE - Phone Holly Days: Prior Verbal Notification: Recipient Understood Notice: Yes Recipient Signature: Yes Med Rec Note Co-signed by Attending: Coverage Notice Comment: CHRISTA for [employer] Reviewer: [id number] Will Girard Notice Issued Date-Time: 04/12/2019 10:52 Notice Type: IM Discharge Notice Notice Delivered To: Family Member Relationship to Patient: Spouse Edge Drummer Name: Ceasar Winter Delivery Method: PHONE - Phone Holly Days: Prior Verbal Notification: Recipient Understood Notice: Yes Recipient Signature: Med Rec Note Co-signed by Attending: Coverage Notice Comment: IMM explained, signed, left at bedside, copy placed in MR Last DP export: 04/12/19 9:59 a Patient Name: CK MCCARTHY Page [id number] at 0905 All edits/amendments must be made on the electronic document DICTATION DATE: 04/20/19904 SOLAR INSTALLATION FOREMAN: ROSALIND 04/20/19904 RPT#: [id number] DC DATE:04/12/19 STATUS: DIS IN [facility] [address] [place] [address] END OF REPORT
--- NOTE | 2019-04-20 09:16 | MORECARE ---
CASE MANAGEMENT DISCHARGE SUMMARY PATIENT: CK MCCARTHY UNIT: [id number] ADM DATE: 04/02/19 AGE: 88 : [birth year] SEX: M ROOM/BED: D.2227 AUTHOR: SALLIE,DOC PHYSICIAN: REFERRING PHYSICIAN: ELISA BARNETT MD DATE OF SERVICE: 04/20/19 Discharge Plan Patient Name: CK MCCARTHY Facility: [facility]:[place] : 1930 Planned Disposition: SNF w Planned Readmission Anticipated Discharge Date: Discharge Date: 04/12/2019 Expected LOS: 0 Initial Reviewer: [email or web address] Initial Review Date: 04/04/2019 Generated: 04/20/19 10:16 am Comments DCP- Discharge Planning Updated by [email or web address]: Chelsea Girard on 04/12/19 9:[address] Received discharge order. I faxed discharge order, meds, MAR, summary to [facility]. I spoke with Curtis Acevedo and informed of discharge order. Will need to call when ambulance is here to take patient home. I called patient's and she agrees with discharge plan. She states that the equipment is being set up now. [facility] has ordered hospital bed, walker, wheelchair, BSC, over the bed table and protective pad. He is going home today with [facility]. states that there will be someone with him 16/05. CM will continue to follow and assist with discharge planning/needs. DCP- Discharge Planning Updated by [email or web address]: Chelsea Girard on 04/11/19 11:[address] Loretta with [facility] called and states they cannot accept patient for SNF, he is not appropriate for skilled therapy and she has notified the . Curtis with [facility] called and states that patient's called and states she would like to bring her home on Hospice. I spoke with patient's via phone and she states that she does want him home with [facility] and that someone would be there with him 16/05. I informed her that if he declined, that Curtis states they do have a IP contract with [facility] in [place] or they may be able to get him back to [facility] with hospice at a later date. I spoke with Dr. Barnett's office and informed that he would need a discharge in the morning once [facility] has the equipment set up. CM will continue to follow and assist with discharge planning/needs. DCP- Discharge Planning Updated by [id number]: Khloe Rojas on 04/10/19 4:[address] LATE ENTRY 0845 CN RECEIVED TELPHONE CALL FROMCURTIS ACEVEDO W/ [facility]. SHE RECEIVED A TELEPHONE CALL FROM THE . THEY WILL NOT BE TAKING THE PATIENT HOME ON HOSPICE. [facility] HAD ARRANGED FOR DME TO BE DELIVERED TODAY W/ PLANNED ADMISSION. THE HAD CONTACTED [facility] WITH REQUEST FOR A REHAB BED. CM SPOKE W/ FREDDIE ALLA. SHE STATES SHE HAD ADVISED THE HOSPICE WOULD BE MORE APPROPRIATE. THE DID NOT WISH TO PAY ROOM AND BOARD FOR THE HOSPICE BED AT FACILITY. JESSA PEYTON FROM [facility] VISITED ON SITE. THE PATIENT'S HAD CALLED HER. SPOKE THE PATIENT. SHE STATED SHE WOULD CALL THE SHE FELT HE WOULD NOT TOLERATE THERAPY FOR SKILLED. CM RECEIVED A TELEPHONE CALL FROM THE . SHE STATED SHE HAD SPOKEN WITH AIDEN AT [facility] AND SHE WAS AWAITING CLINICAL. REPORTS JESSA HAD NOT SPOKEN WITH HER. CM CALLED AIDEN. FAXED CLINICAL. AWAIT CB. 1610 TC TO THE / HER VOICE MAIL WAS FULL AND COULD NOT ACCEPT MESSAGES. DCP- Discharge Planning Updated by [id number]: Jaleesa Daniels on 04/09/19 3:[address] Patient Name: CK MCCARTHY Admission Status: ER Accout number: [id number] Admission Date: 04-02-2019 : 1930 Admission Diagnosis:DYSPHAGIA, UNSPECIFIED Attending: ELISA BARNETT Current LOS: 7 Anticipated DC Date: Planned Disposition: SNF w Planned Readmission Primary Insurance: MEDICARE A & B Discharge Planning Comments: CM SPOKE WITH CURTIS AT [facility] IN [facility] [place] THEY CAN ADMIT PATIENT TOMORROW AFTER DC TO HOME. [facility] NUMBER IS [phone]. SHAYAN AT DR. BARNETT OFFICE CONTACTED AND LEFT [facility] FOR MD REGARDING IF ANTIBIOTICS ARE TO BE CONTINUED OR NOT AND PATIENT ACCEPTED WITH HOSPICE. CM TO FOLLOW AND ASSIST. It Project Lead: Jaleesa Daniels Appended by Jaleesa Daniels on 04/09/2019 15:36 CDT: [facility] CALLED AND THEY ARE DELIVERING PATIENT DME TO THE HOME ABOUT 1030 AM TOMORROW (). PLEASE LET HOSPICE KNOW WHEN PATIENT IS DC'D FROM HERE AND HEADED HOME. THX Appended by Jaleesa Daniels on 04/09/2019 16:52 CDT: PATIENT'S CEASAR IS HERE AND REQUESTS TO SPEAK TO MD ABOUT PATIENT'S PROGNOSIS. SHE MAY NOT WANT HOME HOSPICE, SHAYAN AT DR BARNETT OFFICE NOTIFIED. JITENDRA ANDREWS NOTIFIED IS UNSURE NOW IF HOSPICE IS BEST CHOICE. CM WILL CALL [facility] AND NOTIFY OF POSSIBLE CHANGE. DCP- Discharge Planning Updated by [id number]: Jaleesa Frances on 04/09/19 11:[address] Patient Name: CK MCCARTHY Admission Status: ER Accout number: [id number] Admission Date: 04-02-2019 : 1930 Admission Diagnosis:DYSPHAGIA, UNSPECIFIED Attending: ELISA BARNETT Current LOS: 7 Anticipated DC Date: Planned Disposition: SNF w Planned Readmission Primary Insurance: MEDICARE A & B Discharge Planning Comments: CM SPOKE WITH PATIENT FAMILY BY PHONE AND THEY ARE INTERESTED IN HOSPICE. FAMILY STATES WANTS [facility] IN [place]. I CONTACTED CURTIS AT HOSPICE AT [phone] AND FAXED HER DOCUMENTS TO [phone]. WAITING FOR CALL BACK. CM WILL FOLLOW AND ASSIST NEEDED. It Project Lead: Jaleesa Daniels DCP- Discharge Planning Updated by [email or web address]: Chelsea Girard on 04/04/19 12:[address] Patient Name: CK MCCARTHY Admission Status: ER Accout number: [id number] Admission Date: 04-02-2019 : 1930 Admission Diagnosis: Attending: THIAGO RAGLAND Current LOS: 2 Anticipated DC Date: Planned Disposition: SNF w Planned Readmission Primary Insurance: MEDICARE A & B Discharge Planning Comments: CM went to patient's room to discuss discharging planning, he is asleep and not awakened. I called his , Ceasar, to discuss discharge planning. She states he has been in the skilled therapy at [facility] for about a week and a half. She states the discharge plan is to return there. States residential plan is to return home with her. States he has a cane and a walker at home. I called meghan Araujo for [facility], and clinical faxed. CM will continue to follow and assist with discharge planning/needs. It Project Lead: Chelsea Era DCPIA - Discharge Planning Initial Assessment Updated by [id number]: Chelsea Girard on 04/04/19 1:39 pm * Is the patient Alert and Oriented? No * How many steps to enter\exit or inside your home? 0/1 * PCP Dr. Webb in [place] * Pharmacy [facility] in [place] * Preadmission Environment [facility] * Facility Name [facility] * ADLs Total Dependent * Equipment Cane Walker * List name and contact numbers for known caregivers / representatives who currently or will assist patient after discharge: Ceasar Mccarthy - spouse - H [phone] C [phone] * Verbal permission to speak to the caregivers and representatives has been obtained from the patient. Yes * Community resources currently utilized None * Additional services required to return to the preadmission environment? No * Can the patient safely return to the preadmission environment? Yes * Has this patient been hospitalized within the prior 30 days at any hospital? No Coverage Notice Reviewer: [id number] Will Girard Notice Issued Date-Time: 04/04/2019 13:44 Notice Type: Patient Choice Letter Notice Delivered To: Family Member Relationship to Patient: Spouse Recreation Technician Name: Ceasar Winter Delivery Method: PHONE - Phone [facility]: Prior Verbal Notification: Recipient Understood Notice: Yes Recipient Signature: Yes Med Rec Note Co-signed by Attending: Coverage Notice Comment: CHRISTA for [employer] List Reviewer: [id number] Will Girard Notice Issued Date-Time: 04/12/2019 10:52 Notice Type: IM Discharge Notice Notice Delivered To: Family Member Relationship to Patient: Spouse Recreation Technician Name: Ceasar Winter Delivery Method: PHONE - Phone [facility] [employer]: Prior Verbal Notification: Recipient Understood Notice: Yes Recipient Signature: Med Rec Note Co-signed by Attending: Coverage Notice Comment: IMM explained, signed, left at bedside, copy placed in MR Last DP export: 04/12/19 9:59 a Patient Name: CK MCCARTHY Page [id number] at 0916 All edits/amendments must be made on the electronic document DICTATION DATE: 04/20/19915 RN NEONATAL ICU: ROSALIND 04/20/19915 RPT#: [id number] DC DATE:04/12/19 STATUS: DIS IN [facility] [address] [place] [address] END OF REPORT
== END 2019-04-12 12:26 | DRG 368 ==
LOC: D.ER 19:41 → D.MS 21:55
PROVIDERS: Internal Medicine Gastroenterology; Legal Medicine; ADMIT Family Medicine; ATTEND Family Medicine
PROC: 0D758ZZ Dilation of Esophagus, Via Natural or Artificial Opening Endoscopic (ICD-10-PCS; principal; 2019-04-03 13:00)
DX: B37.81 Candidal esophagitis (principal); R53.2 Functional quadriplegia; N17.0 Acute kidney failure with tubular necrosis; C18.9 Malignant neoplasm of colon, unspecified; N17.9 Acute kidney failure, unspecified; N39.0 Urinary tract infection, site not specified; K22.2 Esophageal obstruction; R13.10 Dysphagia, unspecified; I11.0 Hypertensive heart disease with heart failure; I50.9 Heart failure, unspecified; D64.9 Anemia, unspecified; K29.00 Acute gastritis without bleeding; E87.6 Hypokalemia; L89.152 Pressure ulcer of sacral region, stage 2